=== PATIENT | female | born 1995 | race African-American/Black ===

== ENCOUNTER 2016-10-31 08:47 | Emergency (ER) | payer SELFPAY ==
[~2016-10-31] VITALS: Ht 157.5 cm; Wt 65.0 kg
[~2016-10-31 08:47] MED LIST: MACR100C37 PO; Z.0.NO CURRENT MEDS
[2016-10-31 08:52] VITALS: BP 120/69; PULSE 101; RESP 18; TEMP 98.3; O2SAT 100
[2016-10-31] MEDS ORDERED: LIDOCAINE 1%/EPINEPHrine 1:100,000 SOLN 20 ML VIAL INFIL ONE (09:00)
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
[2016-10-31] MEDS ORDERED: TRAM50TA PO (10:18)
[2016-10-31] MEDS ORDERED: BACT800T5 PO (10:18)
[2016-10-31] MEDS ORDERED: IBUP-232 PO (10:18)
[2016-10-31] MEDS ORDERED: CEPH500C PO (10:18)
[2016-10-31] MEDS ORDERED: IBUPROFEN 800 MG TAB PO ONE (10:30)
== END 2016-10-31 11:19 | disposition home or self-care (01) ==
LOC: NEPK 08:47
DX: S81.012A Laceration without foreign body, left knee, initial encounter (principal); Z72.0 Tobacco use; X99.8XXA Assault by other sharp object, initial encounter; Y93.9 Activity, unspecified; Y92.9 Unspecified place or not applicable; Y99.8 Other external cause status
CPT/HCPCS: 12001; 73564

== ENCOUNTER 2016-11-02 16:08 | Emergency (ER) | payer SELFPAY ==
[~2016-11-02] VITALS: Ht 157.5 cm; Wt 72.0 kg
[~2016-11-02 16:08] MED LIST changes: +BACT800T5 PO; +CEPH500C PO; +IBUP-232 PO; -MACR100C37 PO; +TRAM50TA PO; -Z.0.NO CURRENT MEDS
[2016-11-02 16:09] VITALS: BP 124/68; PULSE 103; RESP 16; TEMP 98.5; O2SAT 98
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
== END 2016-11-02 16:44 | disposition home or self-care (01) ==
LOC: NEPD 16:08
DX: Z48.02 Encounter for removal of sutures (principal); Z79.899 Other long term (current) drug therapy
CPT/HCPCS: 99281

== ENCOUNTER 2016-11-09 16:09 | Emergency (ER) | payer SELFPAY ==
[~2016-11-09] VITALS: Ht 157.5 cm; Wt 70.0 kg
[2016-11-09 16:11] VITALS: BP 124/69; PULSE 95; RESP 16; TEMP 98.8; O2SAT 98
--- NOTE | 2016-11-09 16:31 | PD ---
HPI Chief Complaint: Wound/Suture/Staple Re-Check Time Seen by Provider: 16:29 Travel History International Travel<30 days: No Contact w/Intl Traveler<30days: No Traveled to known affect area: No History of Present Illness HPI 21-year-old female presents to emergency department requesting suture removal to laceration just above her left knee that has been there since October 31. She denies fever, vomiting. Denies drainage, redness, swelling to the wound site. Has no other medical complaints. No known allergies. No modifying factors or associated signs and symptoms. PFSH Past Medical History Autoimmune Disease: No Cardiovascular Problems: No Diminished Hearing: No Genitourinary: Yes (STD) Musculoskeletal: No Neurologic: No Psychiatric: No Respiratory: No Immunizations Current: Yes Sickle Cell Disease: No : 0 Past Surgical History Oral Surgery: Yes Social History Alcohol Use: No Tobacco Use: Yes Substance Use: Yes Allergies-Medications (Allergen,Severity, Reaction): Coded Allergies: No Known Allergies (Verified , 10/31/16) Reported Meds & Prescriptions Reported Meds & Active Scripts Active Tramadol (Tramadol HCl) 50 Mg Tab 50 Mg PO Q6H PRN Ibuprofen 600 Mg Tab 600 Mg PO Q6H PRN Cephalexin 500 Mg Cap 500 Mg PO Q8H Bactrim DS (Sulfamethoxazole-Trimethoprim) 800-160 Mg Tab 1 Tab PO BID Review of Systems Except as stated in HPI: all other systems reviewed are Neg Physical Exam Narrative GENERAL: Well-nourished, well-developed female patient, in no acute distress SKIN: Warm and dry. Laceration just above the left knee that is well approximated with sutures intact; without erythema, edema, drainage. No signs of infection. HEAD: Atraumatic. Normocephalic. EYES: Pupils equal and round. No scleral icterus. No injection or drainage. ENT: Mucosa pink and moist. Airway patent. NECK: Trachea midline. CARDIOVASCULAR: Regular rate. RESPIRATORY: No accessory muscle use. GASTROINTESTINAL: Round. MUSCULOSKELETAL: No obvious deformities. No clubbing. No cyanosis. No edema. NEUROLOGICAL: Awake and alert. Oriented 3. No obvious cranial nerve deficits. Motor grossly within normal limits. Normal speech. PSYCHIATRIC: Appropriate mood and affect; insight and judgment normal. Data Data Last Documented VS Vital Signs Date Time Temp Pulse Resp B/P Pulse Ox O2 Delivery O2 Flow Rate FiO2 11/09/16 16:11 98.8 95 16 124/69 98 Room Air MDM Medical Decision Making Medical Screen Exam Complete: Yes Emergency Medical Condition: Yes Medical Record Reviewed: Yes Differential Diagnosis Suture removal, staple removal, wound recheck Narrative Course 21-year-old female requesting sutures to be removed from laceration just above her left knee. There are no signs of infection. Wound is well approximated and sutures are intact. Sutures were placed on October 31. Sutures removed. Patient tolerated well. Instructed patient to follow up with primary care provider. Patient verbalizes understanding and agreement with treatment plan. Patient is medically cleared and stable for discharge. Discussed reasons to return to the emergency department. Patient agrees with treatment plan. The patients vital signs are stable and the patient is stable for outpatient follow- up and treatment. Patient discharged home, stable and in no acute distress. Diagnosis Primary Impression: Encounter for removal of sutures Referrals: Primary Care Physician Patient Instructions: General Instructions, Stitches Removal (ED) Additional Instructions: Follow-up with primary care provider Med/Other Pt SpecificInfo: No Change to Meds, No Meds Exist/No RX given Disposition: 01 DISCHARGE HOME Condition: Stable Zeny Gregory Nov 09, 2016 16:30
== END 2016-11-09 16:57 | disposition home or self-care (01) ==
LOC: NEPK 16:09
DX: S71.112D Laceration without foreign body, left thigh, subsequent encounter (principal); X58.XXXD Exposure to other specified factors, subsequent encounter; Z48.02 Encounter for removal of sutures
CPT/HCPCS: 99281

== ENCOUNTER 2016-11-14 23:56 | Emergency (ER) | payer SELFPAY ==
[~2016-11-14] VITALS: Ht 160 cm; Wt 70.0 kg
[2016-11-15 00:24] VITALS: BP 121/62; PULSE 88; RESP 16; TEMP 100.8; O2SAT 98
[2016-11-15 02:01] VITALS: BP 110/67; PULSE 92; RESP 20; TEMP 100.2; O2SAT 99
--- NOTE | 2016-11-15 02:05 | PD ---
HPI Chief Complaint: Cold / Flu Symptoms Time Seen by Provider: 01:56 Travel History International Travel<30 days: No Contact w/Intl Traveler<30days: No Traveled to known affect area: No History of Present Illness HPI C/O N/V/D/ CRAMPY ABD PAIN ONSET YESTERDAY, NOT IMPROVING, PAIN IN ABD IS CRAMPY AND ONLY WITH BM, NONRAD PAIN, 5/10 ALTHOUGH CURRENTLY IS PAIN FREE IN ABD BUT FEELS BODY ACHES... PFSH Past Medical History Autoimmune Disease: No Cardiovascular Problems: No Diminished Hearing: No Gastrointestinal Disorders: No Genitourinary: Yes (STD) Musculoskeletal: No Neurologic: No Psychiatric: No Respiratory: No Immunizations Current: Yes Sickle Cell Disease: No : 0 Past Surgical History Oral Surgery: Yes Other Surgery: No Social History Alcohol Use: No Tobacco Use: Yes Substance Use: No Allergies-Medications (Allergen,Severity, Reaction): Coded Allergies: No Known Allergies (Verified , 10/31/16) Reported Meds & Prescriptions Reported Meds & Active Scripts Active Tramadol (Tramadol HCl) 50 Mg Tab 50 Mg PO Q6H PRN Ibuprofen 600 Mg Tab 600 Mg PO Q6H PRN Cephalexin 500 Mg Cap 500 Mg PO Q8H Bactrim DS (Sulfamethoxazole-Trimethoprim) 800-160 Mg Tab 1 Tab PO BID Review of Systems Except as stated in HPI: all other systems reviewed are Neg General / Constitutional: Positive: Fever, Chills Respiratory: Positive: Cough Gastrointestinal: Positive: Nausea, Vomiting, Diarrhea Physical Exam Narrative GENERAL: SKIN: Warm and dry. HEAD: Atraumatic. Normocephalic. EYES: Pupils equal and round. No scleral icterus. No injection or drainage. ENT: No nasal bleeding or discharge. Mucous membranes pink and moist. NECK: Trachea midline. No JVD. CARDIOVASCULAR: Regular rate and rhythm. RESPIRATORY: No accessory muscle use. Clear to auscultation. Breath sounds equal bilaterally. GASTROINTESTINAL: Abdomen soft, non-tender, nondistended. HYPERACTIVE BS MUSCULOSKELETAL: Extremities without clubbing, cyanosis, or edema. No obvious deformities. NEUROLOGICAL: Awake and alert. No obvious cranial nerve deficits. Motor grossly within normal limits. Five out of 5 muscle strength in the arms and legs. Normal speech. PSYCHIATRIC: Appropriate mood and affect; insight and judgment normal. Data Data Last Documented VS Vital Signs Date Time Temp Pulse Resp B/P Pulse Ox O2 Delivery O2 Flow Rate FiO2 11/15/16 02:01 100.2 92 20 110/67 99 Room Air Orders Complete Blood Count With Diff (11/15/16 02:05) Comprehensive Metabolic Panel (11/15/16 02:05) Lipase (11/15/16 02:05) Urinalysis - C+S If Indicated (11/15/16 02:05) Ed Urine Pregnancytest Poc (11/15/16 02:05) Ondansetron Inj (Zofran Inj) (11/15/16 02:15) Ketorolac Inj (Toradol Inj) (11/15/16 02:15) Sodium Chlor 0.9% 1000 Ml Inj (Ns 1000 M (11/15/16 02:15) Labs Laboratory Tests Test 11/15/16 02:10 White Blood Count 5.1 TH/MM3 Red Blood Count 3.83 MIL/MM3 Hemoglobin 9.7 GM/DL Hematocrit 30.2 % Mean Corpuscular Volume 78.9 FL Mean Corpuscular Hemoglobin 25.4 PG Mean Corpuscular Hemoglobin 32.2 % Concent Red Cell Distribution Width 22.6 % Platelet Count 392 TH/MM3 Mean Platelet Volume 6.8 FL Neutrophils (%) (Auto) 74.5 % Lymphocytes (%) (Auto) 10.7 % Monocytes (%) (Auto) 14.0 % Eosinophils (%) (Auto) 0.1 % Basophils (%) (Auto) 0.7 % Neutrophils # (Auto) 3.8 TH/MM3 Lymphocytes # (Auto) 0.5 TH/MM3 Monocytes # (Auto) 0.7 TH/MM3 Eosinophils # (Auto) 0.0 TH/MM3 Basophils # (Auto) 0.0 TH/MM3 CBC Comment DIFF FINAL Differential Comment Urine Color YELLOW Urine Turbidity CLOUDY Urine pH 5.5 Urine Specific Junction 1.020 Urine Protein TRACE mg/dL Urine Glucose (UA) NEG mg/dL Urine Ketones NEG mg/dL Urine Occult Blood NEG Urine Nitrite NEG Urine Bilirubin NEG Urine Urobilinogen LESS THAN 2.0 MG/DL Urine Leukocyte Esterase MOD Urine RBC 2 /hpf Urine WBC 7 /hpf Urine Squamous Epithelial 36 /hpf Cells Urine Bacteria RARE /hpf Urine Mucus MANY /lpf Microscopic Urinalysis Comment CULT NOT INDICATED Sodium Level 136 MEQ/L Potassium Level 3.4 MEQ/L Chloride Level 103 MEQ/L Carbon Dioxide Level 22.7 MEQ/L Anion Gap 10 MEQ/L Blood Urea Nitrogen 4 MG/DL Creatinine 0.68 MG/DL Estimat Glomerular Filtration 132 ML/MIN Rate Random Glucose 88 MG/DL Calcium Level 8.4 MG/DL Total Bilirubin LESS THAN 0.1 MG/DL Aspartate Amino Transf 21 U/L (AST/SGOT) Alanine Aminotransferase 19 U/L (ALT/SGPT) Alkaline Phosphatase 57 U/L Total Protein 7.5 GM/DL Albumin 3.4 GM/DL Lipase 120 U/L [facility] Medical Decision Making Medical Screen Exam Complete: Yes Emergency Medical Condition: Yes Medical Record Reviewed: Yes Differential Diagnosis UTI V VIRAL ENTERITIS V FLU V BACTERIAL ENTERITIS V ELECTROLYTE ABNL V RELATED ILLNESS Narrative Course PATIENT WAS FOUND TO BE POSITIVE URINARY Diagnosis Primary Impression: VIRAL GASTROENTERITIS Additional Impression: NEWLY DIAGNOSED Patient Instructions: General Instructions, (ED), Viral Syndrome (ED) Scripts Metoclopramide (Reglan)10 Mg Tab10 Mg PO QID #20 TAB Ref 0 Prov:Jaguar Benson MD 11/15/16 Disposition: 01 DISCHARGE HOME Condition: Stable Jaguar Benson MD Nov 15, 2016 02:05
[2016-11-15] MEDS ORDERED: SODIUM CHLOR 0.9% 1000 ML INJ 1,000 ML IV ONE (02:15)
[2016-11-15] MEDS ORDERED: ONDANSETRON HCL 4 MG/2 ML VIAL IV PUSH ONE (02:15)
[2016-11-15] MEDS ORDERED: KETOROLAC TROMETHAMINE 30 MG/ML (IVP) VIAL IV PUSH ONE (02:15)
[2016-11-15 02:31] LABS: AUTOMATED NEUTROPHIL # 3.8 TH/MM3 (1.8-7.7); BASOPHIL % 0.7 % (0.0-2.0); EOSINOPHIL % 0.1 % (0.0-4.0); HEMATOCRIT 30.2 % (35.0-46.0); HEMO FLAGS DIFF FINAL; LYMPH % 10.7 % (9.0-44.0); LYMPHOCYTE # 0.5 TH/MM3 (1.0-4.8); MEAN CELL VOLUME 78.9 FL (80.0-100.0); MEAN CORPUSCULAR HEMOGLOBIN 25.4 PG (27.0-34.0); MEAN CORPUSCULAR HGB CONC 32.2 % (32.0-36.0); NEUT % 74.5 % (16.0-70.0); PLATELET COUNT 392 TH/MM3 (150-450); RED BLOOD COUNT 3.83 MIL/MM3 (4.00-5.30); RED CELL DISTRIBUTION WIDTH 22.6 % (11.6-17.2); WHITE BLOOD COUNT 5.1 TH/MM3 (4.0-11.0)
[2016-11-15 02:40] LABS: BACTERIA, URINE RARE /hpf; BLOOD, URINE NEG (NEG); COMMENT (UR) CULT NOT INDICATED; CULTURE IF INDICATED CULT NOT INDICATED; GLUCOSE,URINE NEG (NEG); KETONE, URINE NEG (NEG); MUCUS URINE MANY /lpf (OCC); NITRITE,URINE NEG (NEG); PH, URINE 5.5 (5.0-8.5); SQUAMOUS EPITHELIAL CELL URINE 36 /hpf (0-5); URINE COLOR YELLOW (YELLW/STRAW)
[2016-11-15 02:53] LABS: ALKALINE PHOSPHATASE 57 U/L (45-117); TOTAL BILIRUBIN ADULT LESS THAN 0.1 MG/DL (0.2-1.0)
[2016-11-15 03:03] LABS: ALT (GPT) 19 U/L (10-53); ANION GAP 10 MEQ/L (5-15); AST (GOT) 21 U/L (15-37); BICARBONATE 22.7 MEQ/L (21.0-32.0); BLOOD UREA NITROGEN 4 MG/DL (7-18); CHLORIDE 103 MEQ/L (98-107); GLOMERULAR FILTRATION RATE 132 ML/MIN (>89); POTASSIUM 3.4 MEQ/L (3.5-5.1); SODIUM (NA) 136 MEQ/L (136-145)
[2016-11-15] MEDS ORDERED: REGL10TA5 PO (03:23)
[2016-11-15 04:29] VITALS: BP 126/78
== END 2016-11-15 05:06 | disposition home or self-care (01) ==
LOC: NEPC 23:56
DX: A08.4 Viral intestinal infection, unspecified (principal); Z72.0 Tobacco use
CPT/HCPCS: 80053; 81001; 83690; 84703; 85025; 96374; 96375; 99284; J1885; J2405; J7030

== ENCOUNTER 2017-04-25 12:25 | Emergency (ER) | payer MEDICAID ==
[~2017-04-25 12:25] MED LIST changes: +REGL10TA5 PO
[2017-04-25 12:27] VITALS: BP 126/70; PULSE 92; RESP 14; TEMP 98.2; O2SAT 97
--- NOTE | 2017-04-25 13:24 | PD ---
HPI Chief Complaint: Medical Clearance Time Seen by Provider: 13:13 Travel History International Travel<30 days: No Contact w/Intl Traveler<30days: No Traveled to known affect area: No History of Present Illness HPI 22-year-old female presents to the emergency Department with complaint of abdominal cramping every 2-3 minutes and the feeling like she has to "booboo. " . Last menstrual period beginning of August,. Denies vaginal bleeding or leakage. Reports white vaginal discharge times one week. Says she was seen here in November and had a positive urine test. Does not have an established laundry aide. Says her Medicaid was not approved fast enough and when she called for appointments she was told she was too far along. Reports vomiting one time yesterday. Denies recent illness, including fevers. Denies dysuria or change in stool. Denies chest pain or shortness of breath. No known allergies. Has not taken any medications or tried any treatments to alleviate her symptoms. Does not have an established primary care provider. Has no other medical complaints. No other modifying factors or associated signs and symptoms. PFSH Past Medical History Autoimmune Disease: No Cardiovascular Problems: No Diminished Hearing: No Gastrointestinal Disorders: No Genitourinary: Yes (STD) Musculoskeletal: No Neurologic: No Psychiatric: No Respiratory: No Immunizations Current: Yes Sickle Cell Disease: No ?: : 0 Past Surgical History Oral Surgery: Yes Other Surgery: No Social History Alcohol Use: No Tobacco Use: Yes (05/15 PPD) Substance Use: No Allergies-Medications (Allergen,Severity, Reaction): Coded Allergies: No Known Allergies (Verified , 10/31/16) Reported Meds & Prescriptions Reported Meds & Active Scripts Active Reglan (Metoclopramide HCl) 10 Mg Tab 10 Mg PO QID Tramadol (Tramadol HCl) 50 Mg Tab 50 Mg PO Q6H PRN Ibuprofen 600 Mg Tab 600 Mg PO Q6H PRN Cephalexin 500 Mg Cap 500 Mg PO Q8H Bactrim DS (Sulfamethoxazole-Trimethoprim) 800-160 Mg Tab 1 Tab PO BID Review of Systems Except as stated in HPI: all other systems reviewed are Neg Physical Exam Narrative GENERAL: Well-nourished, well-developed black female patient, in no acute distress SKIN: Warm and dry. HEAD: Atraumatic. Normocephalic. EYES: Pupils equal and round. No scleral icterus. No injection or drainage. ENT: Mucosa pink and moist. Airway patent. NECK: Trachea midline. CARDIOVASCULAR: Regular rate and rhythm. No murmur appreciated. RESPIRATORY: No accessory muscle use. Breath sounds clear and equal bilaterally. No retractions or tachypnea. GASTROINTESTINAL: . Abdomen soft, non-tender. Bowel sounds 4 quadrants. MUSCULOSKELETAL: No obvious deformities. No clubbing. No cyanosis. No edema. NEUROLOGICAL: Awake and alert. Oriented 3. No obvious cranial nerve deficits. Motor grossly within normal limits. Normal speech. PSYCHIATRIC: Appropriate mood and affect; insight and judgment normal. Data Data Last Documented VS Vital Signs Date Time Temp Pulse Resp B/P (MAP) Pulse Ox O2 Delivery O2 Flow Rate FiO2 04/25/17 12:27 98.2 92 14 126/70 (88) 97 MDM Medical Decision Making Medical Screen Exam Complete: Yes Emergency Medical Condition: Yes Medical Record Reviewed: Yes Differential Diagnosis Labor, , medical clearance Narrative Course 22-year-old female with a positive UPT. Last menstrual period beginning of August. heart tones 140s. Patient reports having abdominal cramping every 2-3 minutes. 1318: Patient will be taken to the OB ED for further treatment and evaluation. Diagnosis Primary Impression: Qualified Codes: Z34.90 - Encounter for supervision of normal , unspecified, unspecified trimester Additional Impression: Abdominal cramping Referrals: Disability Liaison Officer Additional Instructions: Go to the [facility] immediately Med/Other Pt SpecificInfo: No Change to Meds, No Meds Exist/No RX given Disposition: 01 DISCHARGE HOME Condition: Stable Zeny Gregory Apr 25, 2017 13:24
--- NOTE | 2017-04-25 14:28 | PD ---
HPI Chief Complaint contraction pain Date Seen: Apr 25, 2017 Time Seen: 13:45 Travel History International Travel<30 Days: No Contact w/Intl Traveler<30Days: No Known Affected Area: No History of Present Illness HPI Ms Hobson is a 22YO at 35 weeks by LMP in early August with no PNC who presents to the OB ED with contractile abdominal pain, low back pain and pain behind her bilateral lower legs/knees. Pt has had some mucousy discharge, but no vaginal bleeding. Pt also has a JIMENEZ and emesis x3 today but no visual disturbances or dizziness. She feels like the contractions are coming every 3 minutes. Pt denies allergies and medications. Denies CP, SOB, diarrhea. Weeks Gestation: 35 Para: 0 : 1 Miscarriage: 0 : 0 History Past Medical History Medical History: Denies Significant Hx Past Surgical History Surgical History: No Previous Surgery Family History Narrative Family History Mother and Father ; mother of CHF and father from cancer Social History Alcohol Use: No Tobacco Use: Yes (smokes when in pain or angry--less than 1 cigarette per day) Substance Abuse: No (denies; however, on previous hospital encounter was UDS positive cannabinoids) Allergies-Medications (Allergen,Severity, Reaction): Coded Allergies: No Known Allergies (Verified , 10/31/16) Home Meds Active Scripts Metoclopramide (Reglan) 10 Mg Tab, 10 MG PO QID, #20 TAB 0 Refills Prov:Jaguar Benson MD 11/15/16 Tramadol (Tramadol) 50 Mg Tab, 50 MG PO Q6H Y for PAIN, #20 TAB Prov:Anam Vila MD 10/31/16 Ibuprofen (Ibuprofen) 600 Mg Tab, 600 MG PO Q6H Y for Pain/Inflammation, #40 TAB Prov:Anam Vila MD 10/31/16 Cephalexin (Cephalexin) 500 Mg Cap, 500 MG PO Q8H for Infection, #21 CAP Prov:Anam Vila MD 10/31/16 Sulfamethoxazole-Trimethoprim (Bactrim DS) 800-160 Mg Tab, 1 TAB PO BID for Infection, #14 TAB Prov:Anam Vila MD 10/31/16 Narrative Medication Denies taking medications Review of Systems General / Constitutional: No: Fever, Chills Eyes: No: Blurred Vision, Visual changes HENT: Headaches Cardiovascular: No: Chest Pain or Discomfort, Palpitations Respiratory: No: Short of Breath Gastrointestinal: Nausea, Vomiting, Abdominal Pain, No: Diarrhea Genitourinary: Discharge, No: Dysuria, Vaginal Bleeding Skin: No Rash Neurologic: No: Dizziness, Headache Physical Exam Vital Signs Date Time Temp Pulse Resp B/P (MAP) Pulse Ox O2 Delivery O2 Flow Rate FiO2 04/25/17 12:27 98.2 92 14 126/70 (88) 97 Narrative GENERAL: Well-nourished, well-developed patient in mild discomfort lying in bed. SKIN: Warm and dry. No rash or lesions. HEAD: Normocephalic and atraumatic. EYES: No scleral icterus. No injection or drainage. EOMI. ENT: No nasal drainage noted. Mucous membranes pink. Airway patent. NECK: Supple, trachea midline. No lymphadenopathy. CARDIOVASCULAR: Regular rate and rhythm without murmur, gallop, or rub. RESPIRATORY: Breath sounds equal bilaterally. No accessory muscle use. ABDOMEN/GI: Abdomen soft, non-tender, bowel sounds present, no rebound, no guarding Gravid to 35 weeks size GENITOURINARY: Cervix: closed Dilatation: - Effacement: - Station: - Presentation: - Membranes: intact Uterine Contractions: none FHT's: Category: 1 Baseline: 140 Reactive: yes Variability: moderate Decels: none EXTREMITIES: No cyanosis or edema. BACK: Nontender without obvious deformity. No CVA tenderness. NEUROLOGICAL: Awake and alert. Motor and sensory grossly within normal limits. Five out of 5 muscle strength in all muscle groups. Normal speech. Data Data Orders Orders Ed Discharge Order (04/25/17 13:25) Vital Signs (Adult) .ON ADMISSION (04/25/17 14:00) ^ Labor Status (04/25/17 14:00) Heart (04/25/17 14:00) Urinalysis - C+S If Indicated (04/25/17 14:00) ^ Non Stress Test (04/25/17 14:00) ^ Hydration (04/25/17 14:00) Comprehensive Metabolic Panel (04/25/17 14:00) Type And Screen (04/25/17 14:00) Gc And Chlamydia Pcr (04/25/17 14:00) Ob/Psych Drug Screen, Urine (04/25/17 14:00) Rubella Immune Status (04/25/17 14:00) Hepatitis Profile (04/25/17 14:00) Rapid Plasma Regin (Rpr) W Ttr (04/25/17 14:00) Complete Blood Count With Diff (04/25/17 14:00) Hiv Antibody Screen (04/25/17 14:00) Us Ob Pelvis >14 Wks Fetus (04/25/17 ) MDM Narrative Course / MDM 22YO at 35 weeks per LMP early August 2016 with no care presents to the ED with contractile pain, back pain, upper portion of LE pain. Monitor shows no contractions, Cat 1 tracing, BL 140, reactive, moderate and no decels. PLAN: - monitoring showing Cat 1 tracing as above - labs pending -OB US indicating amniotic fluid index of 24.9, 35/6 weeks gestational age, wt 2919g (60% for gest age), BPP 8/8 -UA with large leuko esterase, trace lysed blood -Start Macrobid 100mg BID x5 days -Rubella immune -CMP wnl, CBC w/ H/H 9.2/28.1 -Cervical exam with closed cervix Discharge home. Seen and discussed with Teresa Curiel and Taya Diagnosis Diagnosis: Primary Impression: UTI (urinary tract infection) in in third trimester Additional Impressions: Polyhydramnios affecting in third trimester Bacterial vaginosis No care in current 35 weeks gestation of Disposition: 01 DISCHARGE HOME Condition: Stable Patient Instructions: General Instructions Additional Instructions: Go to the [facility] immediately Departure Forms: Tests/Procedures Jonathan Grimm MD R1 Apr 25, 2017 14:28
[2017-04-25 15:22] LABS: AUTOMATED NEUTROPHIL # 5.1 TH/MM3 (1.8-7.7); BASOPHIL # 0.1 TH/MM3 (0-0.2); BASOPHIL % 0.7 % (0.0-2.0); EOSINOPHIL # 0.1 TH/MM3 (0-0.4); EOSINOPHIL % 0.8 % (0.0-4.0); HEMATOCRIT 28.1 % (35.0-46.0); HEMOGLOBIN 9.2 GM/DL (11.6-15.3); LYMPH % 22.9 % (9.0-44.0); LYMPHOCYTE # 1.7 TH/MM3 (1.0-4.8); MEAN CORPUSCULAR HEMOGLOBIN 25.8 PG (27.0-34.0); MEAN CORPUSCULAR HGB CONC 32.7 % (32.0-36.0); MONO % 7.2 % (0.0-8.0); MONOCYTE # 0.5 TH/MM3 (0-0.9); NEUT % 68.4 % (16.0-70.0); PLATELET COUNT 307 TH/MM3 (150-450); RED BLOOD COUNT 3.56 MIL/MM3 (4.00-5.30); RED CELL DISTRIBUTION WIDTH 20.1 % (11.6-17.2); WHITE BLOOD COUNT 7.5 TH/MM3 (4.0-11.0)
[2017-04-25 15:36] LABS: ALBUMIN 2.7 GM/DL (3.4-5.0); ALT (GPT) 24 U/L (10-53); AST (GOT) 23 U/L (15-37); BICARBONATE 24.2 MEQ/L (21.0-32.0); BLOOD UREA NITROGEN 7 MG/DL (7-18); CALCIUM 8.7 MG/DL (8.5-10.1); CHLORIDE 106 MEQ/L (98-107); CREATININE 0.45 MG/DL (0.50-1.00); GLOMERULAR FILTRATION RATE 211 ML/MIN (>89); GLUCOSE,RANDOM 77 MG/DL (74-106); SODIUM (NA) 139 MEQ/L (136-145)
[2017-04-25 15:39] LABS: ALKALINE PHOSPHATASE 161 U/L (45-117); TOTAL BILIRUBIN ADULT 0.2 MG/DL (0.2-1.0); TOTAL PROTEIN 6.4 GM/DL (6.4-8.2)
[2017-04-25 16:40] LABS: BACTERIA, URINE MANY /hpf; BILIRUBIN, URINE NEG (NEG); BLOOD, URINE NEG (NEG); GLUCOSE,URINE NEG (NEG); KETONE, URINE NEG (NEG); MUCUS URINE FEW /lpf (OCC); NITRITE,URINE NEG (NEG); PH, URINE 6.5 (5.0-8.5); SQUAMOUS EPITHELIAL CELL URINE 27 /hpf (0-5); URINE COLOR YELLOW (YELLW/STRAW); URINE LEUKOCYTE ESTERASE LARGE (NEG)
[2017-04-25] MEDS ORDERED: MACR100C2 PO (16:45)
--- NOTE | 2017-04-25 16:47 | HHI.DCPOC ---
Discharge Care Plan Report Symptoms to Your Doctor -Temperature above 100.5 degrees -Redness, of incision or excessive or foul smelling drainage -Unusual pain or calf pain -Increased vaginal bleeding -Painful or difficulty urinating -Feelings of extreme sadness or anxiety after 2 weeks Goals to Promote Your Health * To prevent worsening of your condition and complications, please take your medication as prescribed. * To maintain your health at the optimal level, please follow up with your doctor in 1 week. Directions to Meet Your Goals Take your medications as prescribed Follow your dietary instruction Follow activity as directed Ensure plenty of rest for recovery Drink fluids for hydration Keep your appointments as scheduled Take your immunizations and boosters as scheduled If your symptoms worsen call your PCP, if no PCP go to Urgent Care Center or Emergency Room Smoking is Dangerous to Your Health. Avoid second hand smoke Call the 24-hour crisis hotline for domestic abuse at Jonathan Grimm MD R1 Apr 25, 2017 16:47
[2017-04-25] MEDS ORDERED: METR-1 PO (17:00)
[2017-04-28 12:28] LABS: HEPATITIS A AB IGM NEGATIVE (NEGATIVE); HEPATITIS B CORE AB IGM NEGATIVE (NEGATIVE); HEPATITIS B SURFACE ANTIGEN NEGATIVE (NEGATIVE); HEPATITIS C AB IgG NEGATIVE (NEGATIVE)
== END 2017-04-25 17:08 | disposition home or self-care (01) ==
LOC: HOBED 12:25
DX: O23.43 Unspecified infection of urinary tract in pregnancy, third trimester (principal); O40.3XX0 Polyhydramnios, third trimester, not applicable or unspecified; O23.593 Infection of other part of genital tract in pregnancy, third trimester; N76.0 Acute vaginitis; B96.89 Other specified bacterial agents as the cause of diseases classified elsewhere; O99.333 Smoking (tobacco) complicating pregnancy, third trimester; Z79.899 Other long term (current) drug therapy; Z3A.35 35 weeks gestation of pregnancy
CPT/HCPCS: 36415; 76805; 80053; 80074; 80307; 81001; 85025; 86403; 86592; 86703; 86762; 86850; 86900; 86901; 87081; 87086; 87491; 87591; 99284; G0481; 87150

== ENCOUNTER 2017-04-28 08:56 | Emergency (ER) | payer MEDICAID ==
[~2017-04-28 08:56] MED LIST changes: +MACR100C2 PO; +METR-1 PO
[2017-04-28 09:12] VITALS: BP 125/82; PULSE 101
--- NOTE | 2017-04-28 09:44 | PD ---
HPI Chief Complaint body aches Date Seen: Apr 28, 2017 Time Seen: 09:44 Travel History International Travel<30 Days: No Contact w/Intl Traveler<30Days: No History of Present Illness HPI Patient is a homeless 22-year-old at 36 weeks who presents with body aches. Patient presented to the ED on 04/25 for abdominal pain and pain in her lower legs. Was noticing mucousy discharge. Was found to be positive for Trichomonas and bacterial vaginosis. Diagnosed with UTI and started on Macrobid 100 mg twice a day and Flagyl 500 mg daily. Patient presents today with complaints of body aches and a sore throat that started after her last visit to the ED. She endorses sore throat. Denies fever, nausea/vomiting, diarrhea, dysuria, or discharge. Does not have a primary care provider/SWITCH REPAIRER. He states that she first found out that she was in December at [place] and had ultrasound ( was 11 weeks). Last ultrasound was done at 04/25 visit showing amniotic fluid index of 24.9, 35/6 weeks gestational age, and weight 19170 g. BPP was 8/ 8. Patient has had no other issues this . Has a history of IV drug use , but states that she has not been smoking or using any drugs since living with brother (has been one-week). Weeks Gestation: 36 Para: 0 : 1 History Past Medical History Medical History: Denies Significant Hx Past Surgical History Surgical History: No Previous Surgery Family History Family History: Negative Social History Alcohol Use: No Tobacco Use: No Substance Abuse: No Allergies-Medications (Allergen,Severity, Reaction): Coded Allergies: No Known Allergies (Verified Allergy, Unknown, 04/28/17) Home Meds Active Scripts Metronidazole (Flagyl) 500 Mg Tab, 500 MG PO BID for Infection, #14 TAB 0 Refills Prov:Beth Bain MD R2 04/25/17 Nitrofurantoin Monohydrate Macrocrystals (Macrobid) 100 Mg Cap, 100 MG PO BID for Infection for 5 Days, #10 CAP 0 Refills Prov:Jonathan Grimm MD R1 04/25/17 Metoclopramide (Reglan) 10 Mg Tab, 10 MG PO QID, #20 TAB 0 Refills Prov:Jaguar Benson MD 11/15/16 Tramadol (Tramadol) 50 Mg Tab, 50 MG PO Q6H Y for PAIN, #20 TAB Prov:Anam Vila MD 10/31/16 Ibuprofen (Ibuprofen) 600 Mg Tab, 600 MG PO Q6H Y for Pain/Inflammation, #40 TAB Prov:Anam Vila MD 10/31/16 Cephalexin (Cephalexin) 500 Mg Cap, 500 MG PO Q8H for Infection, #21 CAP Prov:Anam Vila MD 10/31/16 Sulfamethoxazole-Trimethoprim (Bactrim DS) 800-160 Mg Tab, 1 TAB PO BID for Infection, #14 TAB Prov:Anam Vila MD 10/31/16 Review of Systems Except as stated in HPI: all other systems reviewed are Neg Physical Exam Vital Signs Date Time Temp Pulse Resp B/P (MAP) Pulse Ox O2 Delivery O2 Flow Rate FiO2 04/28/17 09:12 101 125/82 (96) Narrative GENERAL: Well-nourished, well-developed patient. SKIN: Warm and dry. HEAD: Normocephalic and atraumatic. EYES: No scleral icterus. No injection or drainage. ENT: No nasal drainage noted. Mucous membranes pink. Airway patent. NECK: Supple, trachea midline. No JVD. CARDIOVASCULAR: Regular rate and rhythm without murmurs, gallops, or rubs. RESPIRATORY: Breath sounds equal bilaterally. No accessory muscle use. ABDOMEN/GI: Abdomen soft, non-tender, bowel sounds present, no rebound, no guarding GENITOURINARY: Cervix: Posterior Dilatation: 0 Effacement: Closed Station: [-] Presentation: [-] Membranes: [intact or ruptured] Uterine Contractions: [-] FHT's: Category: 1 Baseline: 150 Reactive: Yes Variability: Moderate Decels: No EXTREMITIES: No cyanosis or edema. BACK: Nontender without obvious deformity. No CVA tenderness. NEUROLOGICAL: Awake and alert. Motor and sensory grossly within normal limits. Five out of 5 muscle strength in all muscle groups. Normal speech. Data Data Vital Signs Reviewed: Yes Orders Orders Vital Signs (Adult) .ON ADMISSION (04/28/17 09:13) ^ Labor Status (04/28/17 09:13) ^ Non Stress Test (04/28/17 09:13) ^ Hydration (04/28/17 09:13) Urinalysis - C+S If Indicated (04/28/17 09:40) Comprehensive Metabolic Panel (04/28/17 09:40) Ob/Psych Drug Screen, Urine (04/28/17 09:40) Drug Screen, Random Urine (04/28/17 09:40) Complete Blood Count With Diff (04/28/17 09:40) Group B Strep: Positive MDM Medical Record Reviewed: Yes Interpretation(s) Patient is a 22-year-old female at 36 weeks presenting with body aches. History of homelessness and IV drug use. Symptoms likely secondary to viral illness versus antibiotic side effects versus dehydration. heart tones reassuring. Urine sample appears cloudy, however patient does not have any urinary symptoms. Plan to provide hydration. Will also order urinalysis, in order CBC, CMP, and urine drug screen. Provide Tylenol as needed. Plan Tylenol 650 mg PO given x1. 1L LR IV x1 given. F/u w/[facility]. Has appointment scheduled 05/06/17. Physician Communication Plan communicated with Dr. Gifford and Dr. Curiel. Diagnosis Diagnosis: Primary Impression: 36 weeks gestation of Disposition: DISCHARGE HOME Condition: Stable Annie Bro MD R1 Apr 28, 2017 09:44
[2017-04-28] MEDS ORDERED: SODIUM CHLOR 0.9% 1000 ML INJ 1,000 ML IV ONE (10:00)
[2017-04-28] MEDS ORDERED: ACETAMINOPHEN 325 MG TAB PO ONE (10:00)
[2017-04-28 10:09] LABS: BACTERIA, URINE MOD /hpf; BILIRUBIN, URINE NEG (NEG); BLOOD, URINE NEG (NEG); GLUCOSE,URINE NEG (NEG); HYALINE CAST, URINE 1 /lpf (RARE); KETONE, URINE NEG (NEG); MUCUS URINE FEW /lpf (OCC); NITRITE,URINE NEG (NEG); PH, URINE 6.5 (5.0-8.5); SQUAMOUS EPITHELIAL CELL URINE 39 /hpf (0-5); URINE COLOR YELLOW (YELLW/STRAW); URINE LEUKOCYTE ESTERASE LARGE (NEG)
[2017-04-28 10:09] LABS: AUTOMATED NEUTROPHIL # 12.2 TH/MM3 (1.8-7.7); BASOPHIL % 0.2 % (0.0-2.0); EOSINOPHIL # 0.1 TH/MM3 (0-0.4); EOSINOPHIL % 0.5 % (0.0-4.0); HEMATOCRIT 29.3 % (35.0-46.0); HEMOGLOBIN 9.3 GM/DL (11.6-15.3); LYMPH % 6.1 % (9.0-44.0); LYMPHOCYTE # 0.9 TH/MM3 (1.0-4.8); MEAN CELL VOLUME 79.5 FL (80.0-100.0); MEAN CORPUSCULAR HEMOGLOBIN 25.1 PG (27.0-34.0); MEAN CORPUSCULAR HGB CONC 31.6 % (32.0-36.0); MEAN PLATELET VOLUME 8.1 FL (7.0-11.0); MONO % 7.4 % (0.0-8.0); NEUT % 85.8 % (16.0-70.0); PLATELET COUNT 268 TH/MM3 (150-450); RED BLOOD COUNT 3.69 MIL/MM3 (4.00-5.30); RED CELL DISTRIBUTION WIDTH 19.3 % (11.6-17.2); WHITE BLOOD COUNT 14.2 TH/MM3 (4.0-11.0)
[2017-04-28 10:25] LABS: ALBUMIN 2.6 GM/DL (3.4-5.0); AST (GOT) 22 U/L (15-37); BLOOD UREA NITROGEN 3 MG/DL (7-18); CALCIUM 8.2 MG/DL (8.5-10.1); CHLORIDE 106 MEQ/L (98-107); GLOMERULAR FILTRATION RATE 187 ML/MIN (>89); GLUCOSE,RANDOM 76 MG/DL (74-106); SODIUM (NA) 137 MEQ/L (136-145)
[2017-04-28 10:28] LABS: ALKALINE PHOSPHATASE 157 U/L (45-117); ALT (GPT) 22 U/L (10-53); TOTAL BILIRUBIN ADULT 0.2 MG/DL (0.2-1.0); TOTAL PROTEIN 6.8 GM/DL (6.4-8.2)
[2017-04-28 10:42] LABS: CORRECTED NUCLEATED RBC 1 /100 WBC (0-0); LYMPHOCYTES 7 % (9-44); MONOCYTES 6 % (0-8); NEUTROPHIL # MANUAL DIFF 12.4 TH/MM3 (1.8-7.7); NUCLEATED RED BLOOD CELL 1 (0-0); POLYS (SEG NEUTROPHILS) 87 % (16-70)
[2017-04-28] MEDS ORDERED: LACTATED RINGER'S 1000 ML INJ 1,000 ML IV ONE (10:45)
== END 2017-04-28 12:02 | disposition home or self-care (01) ==
LOC: HOBED 08:56
DX: O99.513 Diseases of the respiratory system complicating pregnancy, third trimester (principal); J02.9 Acute pharyngitis, unspecified; O23.43 Unspecified infection of urinary tract in pregnancy, third trimester; B96.89 Other specified bacterial agents as the cause of diseases classified elsewhere; Z3A.36 36 weeks gestation of pregnancy
CPT/HCPCS: 59025; 80053; 80307; 81001; 85007; 85027; 87086; 99284; G0481; J7120

== ENCOUNTER 2017-05-19 12:06 | Emergency (ER) | payer MEDICAID ==
--- NOTE | 2017-05-19 13:22 | PD ---
HPI Chief Complaint pelvic pressure Date Seen: May 19, 2017 Travel History International Travel<30 Days: No Contact w/Intl Traveler<30Days: No Known Affected Area: No History of Present Illness HPI Ms. Hobson is a 22-year-old G1 at 39 2/7 weeks (per 04/25/2017 ultrasound) who presents with complaints of lower pelvic pressure and pain on her sides. Patient states that this pain has been present intermittently for the past several days; it occurs for approximate 5 minutes at a time before remitting. Patient states that pain was significant enough that it awoke her from sleep this morning. Patient does not report any associated pain with urination, fever , or back pain. Patient reports normal movement. Patient denies vaginal bleeding. Patient had some leakage of clear fluid which she is not sure whether it was urine. Patient also reports some whitish discharge but denies any vaginal pain , itching, or other vaginal symptoms. records reviewed: Patient obtained labs 04/25/2017. Labs are unremarkable with exception of mild anemia (Hgb ~9, and GBS positive status). Ultrasound 04/25 showed borderline high KAPIL (24.9). Patient recently treated for Trichomonas and bacterial vaginosis; she states she was compliant with this treatment Weeks Gestation: 39 Para: 0 : 1 History Past Medical History Medical History: Denies Significant Hx Obstetric History Obstetric History G1 Past Surgical History Surgical History: No Previous Surgery Family History Narrative Family History None reported Social History Alcohol Use: No Tobacco Use: Yes (unspecified quantity) Substance Abuse: No (none reported) Allergies-Medications (Allergen,Severity, Reaction): Coded Allergies: No Known Allergies (Verified Allergy, Unknown, 04/28/17) Home Meds Active Scripts Metronidazole (Flagyl) 500 Mg Tab, 500 MG PO BID for Infection, #14 TAB 0 Refills Prov:Beth Bain MD R2 04/25/17 Nitrofurantoin Monohydrate Macrocrystals (Macrobid) 100 Mg Cap, 100 MG PO BID for Infection for 5 Days, #10 CAP 0 Refills Prov:Jonathan Grimm MD R1 04/25/17 Metoclopramide (Reglan) 10 Mg Tab, 10 MG PO QID, #20 TAB 0 Refills Prov:Jaguar Benson MD 11/15/16 Tramadol (Tramadol) 50 Mg Tab, 50 MG PO Q6H Y for PAIN, #20 TAB Prov:Anam Vila MD 10/31/16 Ibuprofen (Ibuprofen) 600 Mg Tab, 600 MG PO Q6H Y for Pain/Inflammation, #40 TAB Prov:Anam Vila MD 10/31/16 Cephalexin (Cephalexin) 500 Mg Cap, 500 MG PO Q8H for Infection, #21 CAP Prov:Anam Vila MD 10/31/16 Sulfamethoxazole-Trimethoprim (Bactrim DS) 800-160 Mg Tab, 1 TAB PO BID for Infection, #14 TAB Prov:Anam Vila MD 10/31/16 Review of Systems General / Constitutional: No: Fever, Chills Eyes: No: Blurred Vision HENT: No: Headaches Cardiovascular: No: Chest Pain or Discomfort Respiratory: No: Short of Breath Gastrointestinal: Vomiting (x1 episode last night), Abdominal Pain (lower, pressure) Genitourinary: No: Urgency, Frequency Skin: No Rash, No Itching Physical Exam Narrative GENERAL: Well-nourished, well-developed patient. SKIN: Warm and dry. HEAD: Normocephalic and atraumatic. EYES: No scleral icterus. No injection or drainage. ENT: No nasal drainage noted. Mucous membranes pink. Airway patent. NECK: Supple, trachea midline. No JVD. CARDIOVASCULAR: Regular rate and rhythm without murmurs. RESPIRATORY: Breath sounds equal bilaterally. No accessory muscle use. EXTREMITIES: No cyanosis or edema. BACK: Nontender without obvious deformity. No CVA tenderness. NEUROLOGICAL: Awake and alert. Motor and sensory grossly within normal limits. Five out of 5 muscle strength in all muscle groups. Normal speech. ABDOMEN/GI: Abdomen soft, non-tender, bowel sounds present, no rebound, no guarding Gravid GENITOURINARY: External Genitalia: intact and normal in appearance Cervix: Dilatation: 0-1 Effacement: 0% Station: -3 Presentation: V Membranes: Intact Uterine Contractions: intermittent/occasional FHT's: Category: 1 Baseline: 135 Reactive: Y Variability: Mod Data Data Vital Signs Reviewed: Yes Group B Strep: Positive MDM Medical Record Reviewed: Yes Plan 22-year-old G1 at 39 2/7 weeks (per 04/25/2017 ultrasound) who presents with complaints of lower pelvic pressure and pain on her sides -Category 1 rhythm -Occasional contractions on CTG -Cervix 0-1/0%/-3 -PE benign Plan: -Monitor HR on EFM -Due to concern for possible are within, Amnisure obtained Interval: Amnisure negative Cat 1 rhythm persistent Occasional contractions on EFM; >10 min separation Updated plan -Patient reassured she is not in labor at this time; she was counseled to return to OB ED with increasing frequency of contractions or any other concerns Diagnosis Diagnosis: Primary Impression: Margaret Swartz contractions Disposition: 01 DISCHARGE HOME Condition: Stable Patient Instructions: Abdominal Pain in (ED), Movement (ED), General Instructions Ronak Otero MD, R3 May 19, 2017 13:22
== END 2017-05-19 14:23 | disposition home or self-care (01) ==
LOC: HOBED 12:06
DX: O47.1 False labor at or after 37 completed weeks of gestation (principal); O99.013 Anemia complicating pregnancy, third trimester; O21.9 Vomiting of pregnancy, unspecified; O99.333 Smoking (tobacco) complicating pregnancy, third trimester; Z3A.39 39 weeks gestation of pregnancy
CPT/HCPCS: 59025; 84112

== ENCOUNTER → 2017-05-23 | Emergency (ER) | payer MEDICAID ==
[~2017-05-23] MED LIST changes: +FERR325T20 PO; +IBUP1TAB7 PO; +OXYC1TAB63 PO; +PERI PO
--- NOTE | 2017-05-23 18:02 | PD ---
HPI Chief Complaint abdominal pain; contractions? Date Seen: May 23, 2017 Travel History International Travel<30 Days: No Contact w/Intl Traveler<30Days: No Known Affected Area: No History of Present Illness HPI Ms. Hobson is a 22-year-old G1 at 40 1/7 weeks (per 04/25/2017 ultrasound) who presents with complaints of R sided abdominal pain. Patient reports that she has been having intermittent abdominal pain every few minutes since this morning; patient states that it is predominantly right- sided. Patient reports some whitish vaginal discharge but denies any loss of fluid. No reported pain with urination. Patient has had chronic urinary frequency during . No fever or chills. Patient reports shortness of breath for the past several weeks; this has not recently changed and patient has had some periods without shortness of breath. No associated cough, chest pain, or leg swelling.No nausea or vomiting. Patient reports normal movement. Patient denies vaginal bleeding. Patient had some leakage of clear fluid which she is not sure whether it was urine. Patient also reports some whitish discharge but denies any vaginal pain , itching, or other vaginal symptoms. records reviewed: Patient obtained labs 04/25/2017. Labs are unremarkable with exception of mild anemia (Hgb ~9, and GBS positive status). Ultrasound 04/25 showed borderline high KAPIL (24.9). Patient recently treated for Trichomonas and bacterial vaginosis; she states she was compliant with this treatment History Past Medical History Medical History: Denies Significant Hx Obstetric History Obstetric History G1 Past Surgical History Surgical History: No Previous Surgery Family History Family History: Negative Allergies-Medications (Allergen,Severity, Reaction): Coded Allergies: No Known Allergies (Verified Allergy, Unknown, 04/28/17) Home Meds Active Scripts Metronidazole (Flagyl) 500 Mg Tab, 500 MG PO BID for Infection, #14 TAB 0 Refills Prov:Beth Bain MD R2 04/25/17 Nitrofurantoin Monohydrate Macrocrystals (Macrobid) 100 Mg Cap, 100 MG PO BID for Infection for 5 Days, #10 CAP 0 Refills Prov:Jonathan Grimm MD R1 04/25/17 Metoclopramide (Reglan) 10 Mg Tab, 10 MG PO QID, #20 TAB 0 Refills Prov:Jaguar Benson MD 11/15/16 Tramadol (Tramadol) 50 Mg Tab, 50 MG PO Q6H Y for PAIN, #20 TAB Prov:Anam Vila MD 10/31/16 Ibuprofen (Ibuprofen) 600 Mg Tab, 600 MG PO Q6H Y for Pain/Inflammation, #40 TAB Prov:Anam Vila MD 10/31/16 Cephalexin (Cephalexin) 500 Mg Cap, 500 MG PO Q8H for Infection, #21 CAP Prov:Anam Vila MD 10/31/16 Sulfamethoxazole-Trimethoprim (Bactrim DS) 800-160 Mg Tab, 1 TAB PO BID for Infection, #14 TAB Prov:Anam Vila MD 10/31/16 Review of Systems General / Constitutional: No: Fever Eyes: No: Blurred Vision HENT: No: Headaches Cardiovascular: No: Chest Pain or Discomfort Respiratory: Short of Breath (intermittent) Gastrointestinal: Abdominal Pain (right sided), No: Nausea, Vomiting Genitourinary: Other (some vaginal discharge, whitish), No: Urgency, Dysuria, Vaginal Bleeding Skin: No Rash Psychiatric: No: Anxiety, Depression Physical Exam BP 111/82 T98.2 HR 89 O2 sat 100% Narrative GENERAL: Well-nourished, well-developed patient. SKIN: Warm and dry. HEAD: Normocephalic and atraumatic. EYES: No scleral icterus. No injection or drainage. ENT: No nasal drainage noted. Mucous membranes pink. Airway patent. NECK: Supple, trachea midline. No JVD. CARDIOVASCULAR: Regular rate and rhythm without murmurs RESPIRATORY: CTAB; normal rate ABDOMEN/GI: Abdomen soft, non-tender, bowel sounds present, no rebound, no guarding Gravid EXTREMITIES: No cyanosis or edema. BACK: Nontender without obvious deformity. No CVA tenderness. NEUROLOGICAL: Awake and alert. Motor and sensory function grossly within normal limits. GENITOURINARY: External Genitalia: intact and normal in appearance Cervix: Dilatation: 1cm Effacement: 70% Station: -3 Presentation: V Membranes: Intact Uterine Contractions: q10min FHT's: Category: 1 Baseline: 120 Reactive: Y Variability: Mod Decels: None MDM Medical Record Reviewed: Yes Narrative Course / MDM Ms. Hobson is a 22-year-old G1 at 40 1/7 weeks (per 04/25/2017 ultrasound) who presents with complaints of right sided abdominal pain -Category 1 rhythm - contractions q10min on CTG -Cervix 1/70%/-3 -PE benign -Reported vaginal discharge in the history of Trichomonas (treated, no CHIDI) Plan: -Monitor HR on EFM -Will obtain wet prep Interval: - HR reactive, reassuring for duration of EFM (>20min) -Contractions remained q10min Updated Assessment/Plan: Impression: Suspect early labor -Will schedule patient for an induction of labor; patient scheduled for 05/26 at 6am -Patient agrees to return to OB ED with any concerns for movement, increasing frequency of contractions, or other concerns -Will follow-up wet prep and call patient after resulted Diagnosis Diagnosis: Primary Impression: 40 weeks gestation of Additional Impression: Uterine contractions during Disposition: 01 DISCHARGE HOME Condition: Stable Patient Instructions: General Instructions, Abdominal Pain in (ED), Movement (ED) Departure Forms: Tests/Procedures Ronak Otero MD, R3 May 23, 2017 18:02
== END | disposition home or self-care (01) ==
LOC: HOBED 16:35
DX: O47.1 False labor at or after 37 completed weeks of gestation (principal); O99.013 Anemia complicating pregnancy, third trimester; D64.9 Anemia, unspecified; Z3A.40 40 weeks gestation of pregnancy
CPT/HCPCS: 59025; 87210

== ENCOUNTER 2017-05-26 06:31 | Inpatient (IN) | payer MEDICAID ==
[~2017-05-26] VITALS: Ht 157.5 cm; Wt 82.0 kg
[2017-05-26] VITALS (34 sets, daily range): BP systolic 109–140; BP diastolic 55–98; PULSE 17–102; RESP 18; TEMP 98–98.2
[~2017-05-26 06:31] MED LIST changes: -FERR325T20 PO; -IBUP1TAB7 PO; -OXYC1TAB63 PO; -PERI PO
[2017-05-26] MEDS ORDERED: LACTATED RINGER'S 1000 ML INJ 1,000 ML IV PRN (06:52)
[2017-05-26] MEDS ORDERED: OXYTOCIN 30 UNITS-500ML PREMIX 500 ML IV ONE (07:00)
[2017-05-26] MEDS ORDERED: LIDOCAINE HCL 1% 50 ML VIAL I-DERMAL PRN (07:00)
[2017-05-26] MEDS ORDERED: SODIUM CHLORID 0.9% 500 ML INJ 500 ML IV PRN (07:00)
[2017-05-26] MEDS ORDERED: PENICILLIN G POTASSIUM INJ 5,000,000 UNITS in SODIUM CHLORIDE 0.9% INJ 100 ML IV ONE (07:00)
[2017-05-26] MEDS ORDERED: ONDANSETRON HCL 4 MG/2 ML VIAL IV PUSH PRN (07:00)
[2017-05-26] MEDS ORDERED: MINERAL OIL 10 ML VIAL TOPICAL PRN (07:00)
[2017-05-26] MEDS ORDERED: LIDOCAINE HCL 1% 50 ML VIAL INFIL PRN (07:00)
--- NOTE | 2017-05-26 07:00 | HHI.HP ---
HPI Chief Complaint Induction of labor Date Seen: May 26, 2017 Travel History International Travel<30 Days: No Contact w/Intl Traveler<30Days: No History of Present Illness HPI Patient is a 22 year old at 40-4/7 weeks gestation based on third trimester US who presents today for induction of labor. She denies any vaginal bleeding or discharge. No gush or leaking of fluid. Positive movement. Of note, she has had poor care. Her first ultrasound was performed on 04/25/17 which gave an KEYANA of 05/24/17. History Past Medical History Medical History: Denies Significant Hx Obstetric History Obstetric History Past Surgical History Surgical History: No Previous Surgery Family History Family History: Negative Social History Alcohol Use: No Tobacco Use: Yes (1 cigarette per day) Substance Abuse: Yes (marijuana use) Allergies-Medications (Allergen,Severity, Reaction): Coded Allergies: No Known Allergies (Verified Allergy, Unknown, 04/28/17) Home Meds Active Scripts Metronidazole (Flagyl) 500 Mg Tab, 500 MG PO BID for Infection, #14 TAB 0 Refills Prov:Beth Bain MD R2 04/25/17 Nitrofurantoin Monohydrate Macrocrystals (Macrobid) 100 Mg Cap, 100 MG PO BID for Infection for 5 Days, #10 CAP 0 Refills Prov:Jonathan Grimm MD R1 04/25/17 Metoclopramide (Reglan) 10 Mg Tab, 10 MG PO QID, #20 TAB 0 Refills Prov:Jaguar Benson MD 11/15/16 Tramadol (Tramadol) 50 Mg Tab, 50 MG PO Q6H Y for PAIN, #20 TAB Prov:Anam Vila MD 10/31/16 Ibuprofen (Ibuprofen) 600 Mg Tab, 600 MG PO Q6H Y for Pain/Inflammation, #40 TAB Prov:Anam Vila MD 10/31/16 Cephalexin (Cephalexin) 500 Mg Cap, 500 MG PO Q8H for Infection, #21 CAP Prov:Anam Vila MD 10/31/16 Sulfamethoxazole-Trimethoprim (Bactrim DS) 800-160 Mg Tab, 1 TAB PO BID for Infection, #14 TAB Prov:Anam Vila MD 10/31/16 Review of Systems Except as stated in HPI: all other systems reviewed are Neg General / Constitutional: No: Fever, Chills Eyes: No: Blurred Vision, Visual changes HENT: No: Headaches Cardiovascular: No: Chest Pain or Discomfort, Palpitations Respiratory: No: Cough, Short of Breath Gastrointestinal: No: Nausea, Vomiting Genitourinary: No: Dysuria, Hematuria, Pelvic Pain, Discharge, Vaginal Bleeding Musculoskeletal: No: Edema Neurologic: No: Headache Psychiatric: Substance Abuse Physical Exam Narrative GENERAL: Well-nourished, well-developed patient. SKIN: Warm and dry. HEAD: Normocephalic and atraumatic. EYES: No scleral icterus. No injection or drainage. ENT: No nasal drainage noted. Mucous membranes pink. Airway patent. NECK: Supple, trachea midline. No JVD. CARDIOVASCULAR: Regular rate and rhythm without murmurs, gallops, or rubs. RESPIRATORY: Breath sounds equal bilaterally. No accessory muscle use. ABDOMEN/GI: Abdomen soft, non-tender, bowel sounds present, no rebound, no guarding Gravid to 40 weeks size GENITOURINARY: External Genitalia: intact and normal in appearance BUS glands: normal Cervix: anterior Dilatation: 1 Effacement: 0 Station: -2 Presentation: vertex Membranes: intact Uterine Contractions: none FHT's: Category: I Baseline: 130 Reactive: + Variability: moderate Decels: none EXTREMITIES: No cyanosis or edema. BACK: Nontender without obvious deformity. NEUROLOGICAL: Awake and alert. Motor and sensory grossly within normal limits. Normal speech. Caprini VTE Risk Assessment Caprini VTE Risk Assessment: No/Low Risk (score <= 1) Caprini Risk Assessment Model Point Value = 1 Point Value = 2 Point Value = 3 Point Value = 5 Age 41-60 Minor surgery BMI > 25 kg/m2 Swollen legs Varicose veins or History of unexplained or recurrent spontaneous Oral contraceptives or hormone replacement Sepsis (< 1 month) Serious lung disease, including pneumonia (< 1 month) Abnormal pulmonary function Acute myocardial infarction Congestive heart failure (< 1 month) History of inflammatory bowel disease Medical patient at bed rest Age 61-74 Arthroscopic surgery Major open surgery (> 45 min) Laparoscopic surgery (> 45 min) Malignancy Confined to bed (> 72 hours) Immobilizing plaster cast Central venous access Age >= 75 History of VTE Family history of VTE Factor V Leiden Prothrombin [id number] Lupus anticoagulant Anticardiolipin antibodies Elevated serum homocysteine Heparin-induced thrombocytopenia Other congenital or acquired thrombophilia Stroke (< 1 month) Elective arthroplasty Hip, pelvis, or leg fracture Acute spinal cord injury (< 1 month) Prophylaxis Regimen Total Risk Factor Score Risk Level Prophylaxis Regimen 0-1 Low Early ambulation 2 Moderate Order ONE of the following: *Sequential Compression Device (SCD) *Heparin 5000 units SQ BID 3-4 Higher Order ONE of the following medications: *Heparin 5000 units SQ TID *Enoxaparin/Lovenox 40 mg SQ daily (WT < 150 kg, CrCl > 30 mL/min) *Enoxaparin/Lovenox 30 mg SQ daily (WT < 150 kg, CrCl > 10-29 mL/min) *Enoxaparin/Lovenox 30 mg SQ BID (WT < 150 kg, CrCl > 30 mL/min) AND/OR *Sequential Compression Device (SCD) 5 or more Highest Order ONE of the following medications: *Heparin 5000 units SQ TID (Preferred with Epidurals) *Enoxaparin/Lovenox 40 mg SQ daily (WT < 150 kg, CrCl > 30 mL/min) *Enoxaparin/Lovenox 30 mg SQ daily (WT < 150 kg, CrCl > 10-29 mL/min) *Enoxaparin/Lovenox 30 mg SQ BID (WT < 150 kg, CrCl > 30 mL/min) AND *Sequential Compression Device (SCD) Data Data Vital Signs Reviewed: Yes Orders Orders Admit To Inpatient (05/26/17 ) Code Status (05/26/17 06:52) Vital Signs (Adult) .Per protocol (05/26/17 06:52) Activity Oob Ad Mary (05/26/17 06:52) Heart (05/26/17 06:52) Amnioinfusion (05/26/17 06:52) Urinary Catheter Management .ONCE (05/26/17 06:52) Diet Liquid (05/26/17 Breakfast) Lactated Ringer's 1000 Ml Inj (Lr 1000 M (05/26/17 06:52) Lactated Ringer's 1000 Ml Inj (Lr 1000 M (05/26/17 06:52) Sodium Chlorid 0.9% 500 Ml Inj (Ns 500 M (05/26/17 07:00) Sodium Chlor 0.9% 1000 Ml Inj (Ns 1000 M (05/26/17 07:12) Lidocaine 1% Inj (50 Ml) (Xylocaine 1% I (05/26/17 07:00) Citric Acid-Sodium Citrate Liq (Bicitra (05/26/17 07:00) Ondansetron Inj (Zofran Inj) (05/26/17 07:00) Fentanyl Inj (Fentanyl Inj) (05/26/17 07:00) Fentanyl Inj (Fentanyl Inj) (05/26/17 07:00) Penicillin G Potassium Inj (Pfizerpen-G (05/26/17 07:00) Penicillin G Potassium Inj (Pfizerpen-G (05/26/17 11:00) Complete Blood Count With Diff (05/26/17 06:52) Hold Clot (05/26/17 06:52) Abo/Rh Blood Type (05/26/17 06:52) Urinalysis - C+S If Indicated (05/26/17 06:52) Drug Screen, Random Urine (05/26/17 06:52) Resp Oxygen Non Rebreathe Mask (05/26/17 ) ^ Epidural / Intrathecal Infus (05/26/17 06:52) Oxytocin 30 Units-500ml Premix (Pitocin (05/26/17 07:00) Lidocaine 1% Inj (50 Ml) (Xylocaine 1% I (05/26/17 07:00) Light Mineral Oil (Muri-Lube Oil) (05/26/17 07:00) Inpatient Certification (05/26/17 ) Specimen To Be Collected PRN (05/26/17 06:52) Specimen To Be Collected PRN (05/26/17 06:52) Group B Strep: Positive Assessment/Plan Assessment and Plan 22 year old at 40-4/7 weeks gestation. 1. IUP- Category I tracing, reassuring. 2. IOL at term- Cervical ripening with Cytotec. 3. GBS positive- Penicillin per protocol. 4. Poor care- labs reviewed from 04/25. Obtain UDS. 5. Anticipate vaginal delivery. yoon Sales,Asai Subramanian MD, R3 May 26, 2017 07:00
[2017-05-26] MEDS ORDERED: SODIUM CHLOR 0.9% 1000 ML INJ 1,000 ML IV PRN (07:12)
[2017-05-26] MEDS ORDERED: SODIUM CHLOR 0.9% 1000 ML INJ 1,000 ML OTHER PRN (07:44)
[2017-05-26] MEDS ORDERED: MISOPROSTOL 25 MCG SUPP VAGINAL ONE (07:45)
[2017-05-26] MEDS ORDERED: MISOPROSTOL 100 MCG TAB VAGINAL ONE (08:45)
[2017-05-26] MEDS: LACTATED RINGER'S 1000 ML INJ 1,000 ML IV SCH ×2 (08:46→22:52)
--- NOTE | 2017-05-26 08:56 | PD.LABORPN ---
Subjective Subjective Patient resting in bed comfortably. Objective Vital Signs Vital Signs Date Time Temp Pulse Resp B/P (MAP) Pulse Ox O2 Delivery O2 Flow Rate FiO2 05/26/17 07:53 68 109/71 (84) Objective Pelvic Exam: Copious white, greenish curdly discharge noted on exam. Cervix: anterior Dilatation: 1 Effacement: 0 Station: -2 Presentation: vertex Membranes: intact Uterine Contractions: none FHT's: Category: I Baseline: 130 Reactive: + Variability: moderate Decels: none Assessment/Plan Assessment and Plan 22 year old at 40-4/7 weeks gestation. 1. IUP- Category I tracing, reassuring. 2. IOL at term- Cervical ripening with Cytotec. 3. Vaginal discharge- obtain wet prep and GC and chlamydia 4. GBS positive- Penicillin per protocol. 5. Poor care- labs reviewed from 04/25. Obtain UDS. 6. Anticipate vaginal delivery. Asia Jerry Dr., MD, R3 May 26, 2017 08:56
[2017-05-26 09:00] LABS: AUTOMATED NEUTROPHIL # 4.9 TH/MM3 (1.8-7.7); BASOPHIL % 0.5 % (0.0-2.0); EOSINOPHIL # 0.1 TH/MM3 (0-0.4); EOSINOPHIL % 1.3 % (0.0-4.0); HEMATOCRIT 28.9 % (35.0-46.0); HEMOGLOBIN 9.4 GM/DL (11.6-15.3); LYMPH % 24.1 % (9.0-44.0); LYMPHOCYTE # 1.8 TH/MM3 (1.0-4.8); MEAN CELL VOLUME 76.7 FL (80.0-100.0); MEAN CORPUSCULAR HEMOGLOBIN 24.8 PG (27.0-34.0); MEAN CORPUSCULAR HGB CONC 32.4 % (32.0-36.0); MEAN PLATELET VOLUME 8.2 FL (7.0-11.0); MONO % 9.1 % (0.0-8.0); MONOCYTE # 0.7 TH/MM3 (0-0.9); PLATELET COUNT 293 TH/MM3 (150-450); RED BLOOD COUNT 3.77 MIL/MM3 (4.00-5.30); RED CELL DISTRIBUTION WIDTH 19.7 % (11.6-17.2); WHITE BLOOD COUNT 7.5 TH/MM3 (4.0-11.0)
[2017-05-26 09:04] LABS: BACTERIA, URINE MOD /hpf; BILIRUBIN, URINE NEG (NEG); BLOOD, URINE SMALL (NEG); GLUCOSE,URINE NEG (NEG); KETONE, URINE NEG (NEG); MUCUS URINE FEW /lpf (OCC); NITRITE,URINE NEG (NEG); PH, URINE 6.5 (5.0-8.5); SQUAMOUS EPITHELIAL CELL URINE 9 /hpf (0-5); URINE COLOR YELLOW (YELLW/STRAW); URINE LEUKOCYTE ESTERASE LARGE (NEG); WHITE BLOOD CELL CLUMPS FEW
[2017-05-26] MEDS ORDERED: FLUCONAZOLE 100 MG TAB PO ONE (09:30)
[2017-05-26] MEDS: metroNIDAZOLE 500 MG TAB PO SCH ×2 (10:35→22:00)
[2017-05-26] MEDS: PENICILLIN G POTASSIUM INJ 2,500,000 UNITS in SODIUM CHLORIDE 0.9% INJ 100 ML IV SCH ×2 (11:00→15:00)
[2017-05-26] MEDS ORDERED: MISOPROSTOL 25 MCG SUPP VAGINAL PRN (11:45)
[2017-05-26] MEDS ORDERED: cefTRIAXone 250 MG VIAL IM ONE (13:30)
[2017-05-26] MEDS ORDERED: AZITHROMYCIN PWD FOR SUSP 1 GM PACKET PO ONE (13:30)
--- NOTE | 2017-05-26 13:37 | PD.LABORPN ---
Subjective Subjective Patient is feeling painful contractions. Objective Vital Signs Vital Signs Date Time Temp Pulse Resp B/P (MAP) Pulse Ox O2 Delivery O2 Flow Rate FiO2 05/26/17 12:00 98.2 18 05/26/17 11:50 70 113/78 (90) 05/26/17 08:00 98.1 18 05/26/17 07:53 68 109/71 (84) Objective Pelvic Exam: Cervix: midposition Dilatation: 1 Effacement: 50 Station: -2 Presentation: vertex Membranes: intact Uterine Contractions: q1-2min FHT's: Category: II Baseline: 145 Reactive: + Variability: moderate Decels: prolonged deceleration with intermittent variable decelerations Assessment/Plan Assessment and Plan 22 year old at 40-4/7 weeks gestation. 1. IUP- Category II tracing. Position change and IV fluids administered with resolution of bradycardia. Continue to monitor. 2. IOL at term- Will hold any further ripening/augmentation at this time given current heart tracing. Expectant management and close monitoring. 3. Vaginal discharge- wet prep positive for BV and yeast vaginitis- will treat with Flagyl 500mg PO BID x 7 days and Diflucan 150mg PO Once. Positive for chlamydia- will treat with Rocephin 250mg IM once and Azithromycin 1000mg PO once. 4. GBS positive- Penicillin per protocol. 5. Poor care- labs reviewed from 04/25. Obtain UDS. 6. Anticipate vaginal delivery. Asia Chandler Dr., MD, R3 May 26, 2017 13:37
[2017-05-26] MEDS ORDERED: MISOPROSTOL 100 MCG TAB VAGINAL SCH (14:00)
--- NOTE | 2017-05-26 16:15 | PD.LABORPN ---
Subjective Subjective Patient feeling painful contractions. Objective Vital Signs Vital Signs Date Time Temp Pulse Resp B/P (MAP) Pulse Ox O2 Delivery O2 Flow Rate FiO2 05/26/17 14:30 73 18 112/78 (89) 05/26/17 14:30 98.2 05/26/17 13:30 66 05/26/17 12:00 98.2 18 05/26/17 11:50 70 113/78 (90) Objective Pelvic Exam: Cervix: posterior Dilatation: 1 Effacement: 50 Station: -2 Presentation: vertex Membranes: SROM, light mec Uterine Contractions: q1-3min FHT's: Category: II Baseline: 130 Reactive: + Variability: moderate Decels: prolonged deceleration Assessment/Plan Assessment and Plan 22 year old at 40-4/7 weeks gestation. 1. IUP- Category II tracing. Position change with resolution of bradycardia. Continue to monitor. 2. IOL at term- SROM. IUPC placed. Expectant management and close monitoring. 3. Vaginal discharge- wet prep positive for BV and yeast vaginitis- will treat with Flagyl 500mg PO BID x 7 days and Diflucan 150mg PO Once. Positive for chlamydia- s/p Rocephin 250mg IM once and Azithromycin 1000mg PO once. 4. GBS positive- Penicillin per protocol. 5. Poor care- labs reviewed from 04/25. UDS positive for cannabinoids. 6. Anticipate vaginal delivery. Asia Chandler Dr., MD, R3 May 26, 2017 16:15
[2017-05-26] MEDS ORDERED: TERBUTALINE INJ 1 MG/ML AMP SQ ONE (16:45)
[2017-05-26] MEDS ORDERED: OXYTOCIN 30 UNITS-500ML PREMIX 500 ML ONE (19:12)
[2017-05-26] MEDS ORDERED: fentaNYL 2MCG-BUPIV 0.125% INJ 100 ML ONE (21:17)
[2017-05-26] MEDS ORDERED: ePHEDrine/NS 25 MG/5 ML SYRINGE ONE (22:02)
[2017-05-27] VITALS (93 sets, daily range): BP systolic 93–143; BP diastolic 62–114; PULSE 63–110; RESP 16–22; TEMP 97.4–98.9; O2SAT 98–100
[2017-05-27] MEDS ORDERED: fentaNYL 2MCG-BUPIV 0.125% INJ 100 ML ONE ×2 (05:31→12:55)
[2017-05-27] MEDS ORDERED: OXYTOCIN 30 UNITS-500ML PREMIX 500 ML IV PRN ×2 (07:30→13:45)
[2017-05-27] MEDS ORDERED: LIDOCAINE 2%/EPINEPHrine PF 1:200,000 20ML SDV INFIL ONE (12:00)
[2017-05-27] MEDS ORDERED: ONDANSETRON HCL 4 MG/2 ML VIAL IV ONE (12:00)
[2017-05-27] MEDS ORDERED: LACTATED RINGER'S 1000 ML INJ 1,000 ML IV ONE (12:00)
[2017-05-27] MEDS ORDERED: OXYTOCIN 10 UNIT/ML AMP IV ONE (12:00)
[2017-05-27] MEDS: metroNIDAZOLE 500 MG TAB PO SCH (12:00)
[2017-05-27] MEDS: PENICILLIN G POTASSIUM INJ 2,500,000 UNITS in SODIUM CHLORIDE 0.9% INJ 100 ML IV SCH ×3 (13:22→19:00)
[2017-05-27] MEDS ORDERED: ceFAZolin 2 GM PREMIX 50 ML IV SCH (17:30)
[2017-05-27] MEDS ORDERED: MORPHINE SULFATE PF 5 MG/10 ML VIAL ONE (17:52)
[2017-05-27] MEDS ORDERED: ACETAMINOPHEN 1000 MG/100 ML 100 ML IV ONE (17:53)
[2017-05-27] MEDS: CITRIC ACID-SODIUM CITRATE LIQ 30 ML UDC PO SCH ×2 (17:57→20:16)
[2017-05-27] MEDS: LACTATED RINGER'S 1000 ML INJ 1,000 ML IV SCH ×2 (17:58→23:25)
--- NOTE | 2017-05-27 19:30 | PD.OB.DELI ---
Procedure Note Section Procedure Pre Op Diagnosis: (1) 40 weeks gestation of (2) Direct occiput posterior presentation of fetus (3) Failure of descent in labor, delivered, current hospitalization (4) Mother positive for group B Streptococcus colonization Post Op Diagnosis: Performed by Krystin Bryan Procedure: Primary Low Transverse Sec Indication for delivery: Other (failure to descend with OP presentation) Informed consent obtained: For anesthesia, For procedure Confirmed correct: Time-out taken Anesthesia: Epidural Medication prior to procedure: As documented in eMAR, Antibiotics, IV Urinary catheter: To dependent drainage, ml urine output (200 cc) Sterile preparation: Duraprep Position: Supine with wedge to left side Operative Features Skin Incision: Pfannenstiel Uterine Incision: Low transverse w/knife / blunt ext Membranes Ruptured: Previously, Appearance of fluid (clear fluid) Presentation: Occiput posterior Delivery date: May 27, 2017 Delivery time: 19:05 Delivery of infant: Uneventful, Umbilical cord (nuchal cord 1) : Male One Minute : 8 Five Minute : 9 Weight: 3485 g Status of : Viable Placenta delivered: Intact Estimated blood loss: 600 cc Procedure tolerated: Well Maternal Condition: Stable Condition: Stable Krystin Bryan MD May 27, 2017 19:30
[2017-05-27] MEDS ORDERED: SODIUM CHLORIDE 0.9% FLUSH 10 ML FLUSH IV FLUSH PRN (19:45)
[2017-05-27] MEDS ORDERED: KETOROLAC TROMETHAMINE 60 MG/2 ML (IM) VIAL IM PRN (19:45)
[2017-05-27] MEDS ORDERED: ONDANSETRON HCL 4 MG/2 ML VIAL IV PUSH PRN (19:45)
[2017-05-27] MEDS ORDERED: OXYTOCIN 30 UNITS-500ML PREMIX 500 ML IV ONE (19:45)
[2017-05-27] MEDS ORDERED: SIMETHICONE 80 MG CHEWABLE TAB PO PRN (19:45)
[2017-05-27] MEDS ORDERED: IBUPROFEN 600 MG TAB PO PRN (19:45)
[2017-05-27] MEDS ORDERED: NO SYSTEM NARCOTICS PRN (21:15)
[2017-05-27] MEDS ORDERED: ePHEDrine/NS 25 MG/5 ML SYRINGE IV PUSH PRN (21:15)
[2017-05-27] MEDS ORDERED: fentaNYL 2MCG-BUPIV 0.125% 100 ML EPIDURAL SCH (21:15)
[2017-05-27] MEDS ORDERED: DO NOT ADMINISTER ANTICOAGULANTS PRN (21:15)
--- NOTE | 2017-05-27 21:39 | MP ---
cc: STEVEN GAMEZ MD DATE OF SURGERY 05/27/17 PREOPERATIVE DIAGNOSIS 1. 40 weeks gestation. 2. Direct occiput posterior presentation. 3. Failure of descent in labor. 4. Positive group B strep. POSTOPERATIVE DIAGNOSIS 1. 40 weeks gestation. 2. Direct occiput posterior presentation. 3. Failure of descent in labor. 4. Positive group B strep. PROCEDURE Primary low transverse section without extension ESTIMATED BLOOD LOSS 600 mL ANESTHESIA Epidural DRAINS Leblanc to gravity. COMPLICATIONS None PATHOLOGY None FINDINGS 1. Normal uterus, tubes and ovaries. 2. Clear amniotic fluid. 3. Infant male vertex presentation in occiput posterior. Apgars were 8 and 9. Weight was 3485 grams, 7 pounds 11 ounces. DESCRIPTION OF PROCEDURE The patient taken back to the operating room, draped in usual A sterile fashion, placed in the dorsal supine position with a wedge to her left side. After adequate anesthetic a Pfannenstiel incision was made in the skin, taken down to the fascia and the fascia was nicked in the midline and extended bilaterally, taken down to the rectus muscles. Muscles were divided in the midline. Anterior peritoneum was entered, extended superiorly inferiorly taking care to avoid traumatization of the bowel and the bladder. Transverse hysterotomy incision was made bluntly and extended bilaterally. The infant was delivered to the operative field. Nuchal cord x1 was reduced, the rest of the body was delivered and handed off to the resuscitation team. A 45-second cord clamping delay was administered. Placenta was delivered intact spontaneously and the endometrial cavity was curetted with a moist laparotomy sponge. Hysterotomy incision was repaired using a running locking #1 chromic suture with good hemostasis at closure. Gutters were rendered free of all blood and clot material. The peritoneum was closed with a running suture of 3-0 chromic. A #1 PDS was placed into the fascia and a subcuticular suture using 3-0 Monocryl was placed in the skin. The patient tolerated the procedure well. She has taken back to recovery room in good condition. Steven Gamez MD /SA /7:28 PM /9:19 PM
[2017-05-27] MEDS: DOCUSATE SODIUM 50 MG/SENNA 8.6 MG TAB PO PRN ×2 (23:25→23:26)
[2017-05-27] MEDS: IBUPROFEN 800 MG TAB PO PRN ×2 (23:25→23:27)
[2017-05-28 00:30] VITALS: BP 120/70; PULSE 72; RESP 18; TEMP 98.3
[2017-05-28] MEDS ORDERED: LACTATED RINGER'S 1000 ML INJ 1,000 ML IV SCH (00:32)
[2017-05-28] MEDS ORDERED: EPIDURAL-DIPHENHYDRAMINE HCL 50 MG CAP PO PRN (01:00)
[2017-05-28] MEDS ORDERED: EPIDURAL-DIPHENHYDRAMINE HCL 50 MG/ML VIAL IV PUSH PRN (01:00)
[2017-05-28] MEDS ORDERED: EPIDURAL-NALOXONE HCL 0.4 MG/ML AMP IV PUSH PRN (01:00)
[2017-05-28] MEDS ORDERED: EPIDURAL-NO SYSTEMIC NARCOTICS PRN (01:00)
[2017-05-28] MEDS ORDERED: EPIDURAL-DO NOT ADMINISTER ANTICOAGULANTS PRN (01:00)
[2017-05-28 03:30] VITALS: BP 122/70; PULSE 70; RESP 18; TEMP 98.3
[2017-05-28 05:01] LABS: AUTOMATED NEUTROPHIL # 13.5 TH/MM3 (1.8-7.7); BASOPHIL % 0.2 % (0.0-2.0); EOSINOPHIL % 0.1 % (0.0-4.0); HEMATOCRIT 27.6 % (35.0-46.0); LYMPHOCYTE # 1.3 TH/MM3 (1.0-4.8); MEAN CELL VOLUME 75.7 FL (80.0-100.0); MEAN CORPUSCULAR HEMOGLOBIN 24.8 PG (27.0-34.0); MEAN CORPUSCULAR HGB CONC 32.8 % (32.0-36.0); MEAN PLATELET VOLUME 8.3 FL (7.0-11.0); MONO % 7.7 % (0.0-8.0); MONOCYTE # 1.2 TH/MM3 (0-0.9); PLATELET COUNT 239 TH/MM3 (150-450); RED BLOOD COUNT 3.65 MIL/MM3 (4.00-5.30); RED CELL DISTRIBUTION WIDTH 19.1 % (11.6-17.2); WHITE BLOOD COUNT 16.1 TH/MM3 (4.0-11.0)
[2017-05-28] MEDS ORDERED: OXYTOCIN 30 UNITS-500ML PREMIX 500 ML IV PRN (05:45)
[2017-05-28 08:30] VITALS: BP 110/84; PULSE 68; RESP 16; TEMP 98
--- NOTE | 2017-05-28 08:36 | HHI.OB ---
Subjective Post Operative Day: 1 Remarks Ms. Hobson is a 22 yo who is POD 1 from CS (failure to progress) 05/27 at 1905. Patient has been afebrile with stable vital signs overnight. Patient reports that she is doing well at this time; she reports that her abdominal pain is controlled. Patient has had light vaginal bleeding. Patient has been ambulating well. No dysuria. Patient passing gas; no bowel movement. Patient is bottle feeding. No chest pain, shortness of breath, or leg swelling. Objective Vitals/I&O Vital Signs Date Time Temp Pulse Resp B/P (MAP) Pulse Ox O2 Delivery O2 Flow Rate FiO2 05/28/17 03:30 98.3 18 05/28/17 03:30 70 122/70 (87) 05/28/17 01:10 16 05/28/17 00:30 98.3 72 18 120/70 (87) 05/27/17 21:30 98.9 70 18 122/81 (95) 05/27/17 20:25 98.6 05/27/17 20:22 16 100 05/27/17 20:22 82 21 05/27/17 20:21 127/91 (103) 05/27/17 20:08 83 21 100 05/27/17 20:08 129/67 (87) 05/27/17 19:55 91 129/77 (94) 05/27/17 19:55 22 100 05/27/17 19:40 98.0 98 05/27/17 19:40 92 20 120/88 (99) 05/27/17 18:20 84 134/96 (109) 05/27/17 18:15 81 05/27/17 18:15 76 136/95 (109) 05/27/17 18:13 72 143/93 (110) 05/27/17 17:30 73 112/62 (79) 05/27/17 17:13 98.5 20 05/27/17 17:01 73 93/64 (74) 05/27/17 16:31 76 125/84 (98) 05/27/17 16:01 69 139/108 (118) 05/27/17 15:45 97.5 18 05/27/17 15:31 74 124/76 (92) 05/27/17 15:00 73 123/79 (94) 05/27/17 14:31 70 109/64 (79) 05/27/17 14:01 91 127/82 (97) 05/27/17 13:52 18 05/27/17 13:45 98.3 18 05/27/17 13:30 69 119/102 (108) 05/27/17 13:00 74 135/94 (108) 05/27/17 12:45 98.2 18 05/27/17 12:30 110 135/114 (121) 05/27/17 12:01 63 127/72 (90) 05/27/17 11:45 98.2 18 05/27/17 11:39 69 133/96 (108) 05/27/17 11:30 70 135/98 (110) 05/27/17 11:15 66 122/78 (93) 05/27/17 11:00 70 133/83 (100) 05/27/17 10:25 67 05/27/17 10:20 67 05/27/17 10:16 65 130/94 (106) 05/27/17 10:01 75 130/76 (94) 05/27/17 10:00 76 05/27/17 09:50 71 05/27/17 09:45 70 05/27/17 09:45 16 05/27/17 09:45 71 124/87 (99) 05/27/17 09:40 73 05/27/17 09:35 74 05/27/17 09:31 80 111/74 (86) 05/27/17 09:10 67 05/27/17 09:05 78 05/27/17 09:03 78 136/95 (109) 05/27/17 09:00 70 05/27/17 08:58 97.4 05/27/17 08:58 18 05/27/17 08:55 76 05/27/17 08:46 66 130/91 (104) 05/27/17 08:45 69 05/27/17 08:40 72 05/27/17 08:35 67 Result Diagram: 05/28/17 0436 Objective Remarks GENERAL: Well-nourished, well-developed patient. CARDIOVASCULAR: Regular rate and rhythm without murmurs. Normal perfusion RESPIRATORY: CTAB; normal rate ABDOMEN/GI: Abdomen soft, non-tender, bowel sounds present. Incision: Clean, dry and intact. Fundus: Firm, non-tender at umbilicus. GENITOURINARY: Light bleeding. EXTREMITIES: No cyanosis or edema, non-tender, without signs of DVT. Medications and IVs Current Medications Medications (Trade) Dose Ordered Sig/Maggi Route Start Time Stop Time Status Last Admin Lactated Ringer's 1,000 ml @ 125 mls/hr Q8H IV 05/26/17 06:52 05/27/17 23:25 Lactated Ringer's 1,000 ml @ 3,000 mls/hr Q20M PRN IV 05/26/17 06:52 Sodium Chloride 1,000 ml @ 100 mls/hr Q10H PRN IV 05/26/17 07:12 (Xylocaine 1% Inj (50 ml)) 0.1 ml UNSCH X1 PRN I-DERMAL 05/26/17 07:00 05/29/17 06:59 (Bicitra Liq) 30 ml JUDICIAL REPORTER PO 05/26/17 07:00 05/30/17 06:59 05/27/17 20:16 (fentaNYL INJ) 50 mcg Q1H PRN IV PUSH 05/26/17 07:00 05/26/17 14:27 (fentaNYL INJ) 100 mcg Q1H PRN IV PUSH 05/26/17 07:00 05/26/17 17:41 (Muri-Lube Oil) 10 ml UNSCH PRN TOPICAL 05/26/17 07:00 Cefazolin Sodium/ Dextrose 50 ml @ 100 mls/hr JUDICIAL REPORTER IV 05/27/17 17:30 05/31/17 17:29 05/27/17 20:16 Lactated Ringer's 1,000 ml @ 100 mls/hr Q10H IV 05/28/17 00:32 05/28/17 20:31 Oxytocin 500 ml @ 100 mls/hr UNSCH X1 PRN IV 05/28/17 05:45 05/29/17 05:44 (NS Flush) 2 ml BID IV FLUSH 05/27/17 21:00 (NS Flush) 2 ml UNSCH PRN IV FLUSH 05/27/17 19:45 (Mylicon Chew) 80 mg QID PRN PO 05/27/17 19:45 (Percocet 5-325 Mg) 1 tab Q4H PRN PO 05/27/17 19:45 (Percocet 5-325 Mg) 2 tab Q4H PRN PO 05/27/17 19:45 (Teetee-Colace) 2 tab Q12H PRN PO 05/27/17 19:45 05/27/17 23:26 (M-M-R Ii Inj) 0.5 ml ONCE ONCE SQ 05/28/17 16:00 05/28/17 16:01 (Boostrix Inj) 0.5 ml ONCE ONCE IM 05/28/17 16:00 05/28/17 16:01 05/28/17 01:01 (Zofran Inj) 4 mg Q6H PRN IV PUSH 05/27/17 19:45 Miscellaneous Information No systemic narcotics to be given except... UNSCH PRN .XX 05/27/17 21:15 05/28/17 21:14 Miscellaneous Information DO NOT ADMINISTER ANY ANTICOAGUL... UNSCH PRN .XX 05/27/17 21:15 05/28/17 21:14 Fentanyl/ Bupivacaine HCl 100 ml @ 0 mls/hr TITRATE EPIDURAL 05/27/17 21:15 (ePHEDrine/NS 25 MG/5 ML SYR) 10 mg UNSCH PRN IV PUSH 05/27/17 21:15 05/28/17 21:14 (Motrin) 800 mg Q8H PRN PO 05/27/17 22:30 05/27/17 23:27 Miscellaneous Information NO SYSTEMIC NARCOTICS TO BE GIVEN FO... UNSCH PRN .XX 05/28/17 01:00 05/29/17 00:59 (Narcan Inj) 0.4 mg UNSCH PRN IV PUSH 05/28/17 01:00 05/29/17 00:59 (Benadryl Inj) 25 mg Q6H PRN IV PUSH 05/28/17 01:00 05/29/17 00:59 (Benadryl) 50 mg Q6H PRN PO 05/28/17 01:00 05/29/17 00:59 Miscellaneous Information ALL NURSING DEPARTMENTS UNSCH PRN .XX 05/28/17 01:00 05/29/17 00:59 Assessment/Plan Problem List: (1) Chlamydia ICD Codes: A74.9 - Chlamydial infection, unspecified (2) care following delivery ICD Codes: Z39.2 - Encounter for routine follow-up Assessment and Plan Ms. Hobson is a 22 yo who is POD 1 from CS (failure to progress) 05/27 at 1905. -Continue post- care -Continue to monitor VS, vaginal bleeding -Encourage ambulation -Percocet/Motrin for pain control -Teetee-colace for stool softening -Bacterial vaginosis -Continue Flagyl 500mg BID -Vaginal sebastián -s/p Diflucan x1 Chlamydia -s/p Azithromycin 1gm Ronak Otero MD, R3 May 28, 2017 08:36
[2017-05-28] MEDS: metroNIDAZOLE 500 MG TAB PO SCH ×2 (10:18→21:08)
[2017-05-28] MEDS: IBUPROFEN 800 MG TAB PO PRN ×2 (10:24→21:09)
[2017-05-28] MEDS: oxyCODONE/ACETAMINOPHEN 5 MG/325 MG TAB PO PRN ×3 (10:24→21:09)
[2017-05-28 12:30] VITALS: BP 108/77; PULSE 87; RESP 18; TEMP 98.7
[2017-05-28] MEDS ORDERED: DIPHTH/TETANUS/ACEL PERTUSSIS (BOOSTER) 0.5 ML VIAL/PFS IM ONE (16:00)
[2017-05-28] MEDS ORDERED: MEASLES, MUMPS, RUBELLA VACCINE 0.5 ML VIAL SQ ONE (16:00)
[2017-05-28 16:30] VITALS: BP 117/75; PULSE 82; RESP 18; TEMP 98.4
[2017-05-28 20:00] VITALS: BP 112/69; PULSE 70; RESP 20; TEMP 97.7; O2SAT 97
[2017-05-28] MEDS: LACTATED RINGER'S 1000 ML INJ 1,000 ML IV SCH (21:12)
[2017-05-28] MEDS: SODIUM CHLORIDE 0.9% FLUSH 10 ML FLUSH IV FLUSH SCH ×2 (21:12→21:23)
[2017-05-29] MEDS: oxyCODONE/ACETAMINOPHEN 5 MG/325 MG TAB PO PRN ×3 (05:13→19:41)
[2017-05-29] MEDS: IBUPROFEN 800 MG TAB PO PRN ×2 (05:13→13:52)
--- NOTE | 2017-05-29 07:40 | HHI.OB ---
Subjective Post Operative Day: 2 Remarks Ms. Hobson is a 22 yo who is POD 2 from CS (failure to progress) 05/27 at 1905. Patient has been afebrile with stable vital signs overnight. Patient reports that her abdominal pain is worse; she attributes this to medications associated with surgery wearing off. Patient has had light vaginal bleeding. Patient has been ambulating well; she uses assistance when in pain. Patient reports some dysuria. Patient passing gas; no bowel movements. Patient is bottle feeding. No chest pain, shortness of breath, or leg swelling. Patient reports that she was visited by [facility]. Objective Vitals/I&O Vital Signs Date Time Temp Pulse Resp B/P (MAP) Pulse Ox O2 Delivery O2 Flow Rate FiO2 05/28/17 20:00 97.7 70 20 112/69 (83) 97 05/28/17 16:30 98.4 82 18 117/75 (89) 05/28/17 12:30 98.7 87 18 108/77 (87) 05/28/17 08:30 98.0 68 16 110/84 (93) Result Diagram: 05/28/17 0436 Objective Remarks GENERAL: Well-nourished, well-developed patient. CARDIOVASCULAR: Regular rate and rhythm without murmurs. Normal perfusion RESPIRATORY: CTAB; normal rate ABDOMEN/GI: Abdomen soft, non-tender, bowel sounds present. Incision: Clean, dry and intact. Fundus: Firm, non-tender at umbilicus. GENITOURINARY: Light bleeding. EXTREMITIES: No cyanosis or edema, non-tender, without signs of DVT. Medications and IVs Current Medications Medications (Trade) Dose Ordered Sig/Maggi Route Start Time Stop Time Status Last Admin Lactated Ringer's 1,000 ml @ 125 mls/hr Q8H IV 05/26/17 06:52 05/27/17 23:25 Lactated Ringer's 1,000 ml @ 3,000 mls/hr Q20M PRN IV 05/26/17 06:52 Sodium Chloride 1,000 ml @ 100 mls/hr Q10H PRN IV 05/26/17 07:12 (Bicitra Liq) 30 ml SHOWER DOORS AND PANELS FABRICATOR PO 05/26/17 07:00 05/30/17 06:59 05/27/17 20:16 (fentaNYL INJ) 50 mcg Q1H PRN IV PUSH 05/26/17 07:00 05/26/17 14:27 (fentaNYL INJ) 100 mcg Q1H PRN IV PUSH 05/26/17 07:00 05/26/17 17:41 (Muri-Lube Oil) 10 ml UNSCH PRN TOPICAL 05/26/17 07:00 Cefazolin Sodium/ Dextrose 50 ml @ 100 mls/hr SHOWER DOORS AND PANELS FABRICATOR IV 05/27/17 17:30 05/31/17 17:29 05/27/17 20:16 (NS Flush) 2 ml BID IV FLUSH 05/27/17 21:00 05/28/17 21:23 (NS Flush) 2 ml UNSCH PRN IV FLUSH 05/27/17 19:45 (Mylicon Chew) 80 mg QID PRN PO 05/27/17 19:45 (Percocet 5-325 Mg) 1 tab Q4H PRN PO 05/27/17 19:45 05/28/17 21:09 (Percocet 5-325 Mg) 2 tab Q4H PRN PO 05/27/17 19:45 05/29/17 05:13 (Teetee-Colace) 2 tab Q12H PRN PO 05/27/17 19:45 05/27/17 23:26 (Zofran Inj) 4 mg Q6H PRN IV PUSH 05/27/17 19:45 Fentanyl/ Bupivacaine HCl 100 ml @ 0 mls/hr TITRATE EPIDURAL 05/27/17 21:15 (Motrin) 800 mg Q8H PRN PO 05/27/17 22:30 05/29/17 05:13 (Flagyl) 500 mg BID PO 05/28/17 09:00 05/28/17 21:08 (Ferrous Sulfate) 325 mg BID PO 05/29/17 09:00 Assessment/Plan Problem List: (1) Chlamydia ICD Codes: A74.9 - Chlamydial infection, unspecified (2) care following delivery ICD Codes: Z39.2 - Encounter for routine follow-up Assessment and Plan Ms. Hobson is a 22 yo who is POD 1 from CS (failure to progress) 05/27 at 1905. -Continue post- care -Continue to monitor VS, vaginal bleeding -Encourage ambulation -Percocet/Motrin for pain control -Will add IM Toradol for breakthrough pain -Teetee-colace for stool softening -Bacterial vaginosis -Continue Flagyl 500mg BID -Vaginal sebastián -s/p Diflucan x1 Chlamydia -s/p Azithromycin 1gm Ronak Otero MD, R3 May 29, 2017 07:40
[2017-05-29] MEDS ORDERED: KETOROLAC TROMETHAMINE 60 MG/2 ML (IM) VIAL IM PRN (07:45)
[2017-05-29 08:30] VITALS: BP 120/80; PULSE 66; RESP 18; TEMP 97.9
[2017-05-29] MEDS: FERROUS SULFATE 325 MG (65 MG ELEMENTAL IRON) TAB PO SCH ×2 (08:44→21:30)
[2017-05-29] MEDS: metroNIDAZOLE 500 MG TAB PO SCH ×2 (08:44→21:53)
[2017-05-29] MEDS: DOCUSATE SODIUM 50 MG/SENNA 8.6 MG TAB PO PRN (13:58)
[2017-05-29 19:30] VITALS: BP 118/88; PULSE 67; RESP 18; TEMP 98.5
[2017-05-29 20:30] VITALS: BP 119/85; PULSE 69
[2017-05-30] MEDS: oxyCODONE/ACETAMINOPHEN 5 MG/325 MG TAB PO PRN ×2 (00:04→04:58)
[2017-05-30] MEDS: IBUPROFEN 800 MG TAB PO PRN (00:04)
[2017-05-30 06:30] VITALS: BP 116/84; PULSE 64; RESP 18; TEMP 98.8
[2017-05-30 08:00] VITALS: BP 136/85; PULSE 66; RESP 18; TEMP 97.3; O2SAT 96
--- NOTE | 2017-05-30 08:38 | HHI.OB ---
Subjective Remarks Ms. Hobson is a 22 yo who is POD 3 from CS (failure to progress) 05/27 at 1905. Patient has been afebrile with stable vital signs overnight. Patient reports that her abdominal pain is controlled at this time; she has also been ambulating better. Patient has had light vaginal bleeding. No dysuria. Patient passing gas; no bowel movements. Patient is bottle feeding. No chest pain, shortness of breath, or leg swelling. Patient plans to have follow-up in ~1 week. Objective Vitals/I&O Vital Signs Date Time Temp Pulse Resp B/P (MAP) Pulse Ox O2 Delivery O2 Flow Rate FiO2 05/30/17 06:30 98.8 64 18 116/84 (95) 05/29/17 20:30 69 119/85 (96) 05/29/17 19:30 67 118/88 (98) 05/29/17 19:30 98.5 18 Result Diagram: 05/28/17 0436 Objective Remarks GENERAL: Well-nourished, well-developed patient. CARDIOVASCULAR: Regular rate and rhythm without murmurs. Normal perfusion RESPIRATORY: CTAB; normal rate ABDOMEN/GI: Abdomen soft, non-tender, bowel sounds present. Incision: Clean, dry and intact. Fundus: Firm, non-tender at umbilicus. GENITOURINARY: Light bleeding. EXTREMITIES: No cyanosis or edema, non-tender, without signs of DVT. Medications and IVs Current Medications Medications (Trade) Dose Ordered Sig/Maggi Route Start Time Stop Time Status Last Admin Lactated Ringer's 1,000 ml @ 125 mls/hr Q8H IV 05/26/17 06:52 05/27/17 23:25 Lactated Ringer's 1,000 ml @ 3,000 mls/hr Q20M PRN IV 05/26/17 06:52 Sodium Chloride 1,000 ml @ 100 mls/hr Q10H PRN IV 05/26/17 07:12 (fentaNYL INJ) 50 mcg Q1H PRN IV PUSH 05/26/17 07:00 05/26/17 14:27 (fentaNYL INJ) 100 mcg Q1H PRN IV PUSH 05/26/17 07:00 05/26/17 17:41 (Muri-Lube Oil) 10 ml UNSCH PRN TOPICAL 05/26/17 07:00 Cefazolin Sodium/ Dextrose 50 ml @ 100 mls/hr MOVIE EXTRA IV 05/27/17 17:30 05/31/17 17:29 05/27/17 20:16 (NS Flush) 2 ml BID IV FLUSH 05/27/17 21:00 05/28/17 21:23 (NS Flush) 2 ml UNSCH PRN IV FLUSH 05/27/17 19:45 (Mylicon Chew) 80 mg QID PRN PO 05/27/17 19:45 (Percocet 5-325 Mg) 1 tab Q4H PRN PO 05/27/17 19:45 05/28/17 21:09 (Percocet 5-325 Mg) 2 tab Q4H PRN PO 05/27/17 19:45 05/30/17 04:58 (Teetee-Colace) 2 tab Q12H PRN PO 05/27/17 19:45 05/29/17 13:58 (Zofran Inj) 4 mg Q6H PRN IV PUSH 05/27/17 19:45 Fentanyl/ Bupivacaine HCl 100 ml @ 0 mls/hr TITRATE EPIDURAL 05/27/17 21:15 (Motrin) 800 mg Q8H PRN PO 05/27/17 22:30 05/30/17 00:04 (Flagyl) 500 mg BID PO 05/28/17 09:00 05/29/17 21:53 (Ferrous Sulfate) 325 mg BID PO 05/29/17 09:00 05/29/17 21:30 (Toradol Inj) 30 mg Q6H PRN IM 05/29/17 07:45 06/03/17 07:44 05/29/17 08:46 Assessment/Plan Problem List: (1) Chlamydia ICD Codes: A74.9 - Chlamydial infection, unspecified (2) care following delivery ICD Codes: Z39.2 - Encounter for routine follow-up Assessment and Plan Ms. Hobson is a 22 yo who is POD 3 from CS (failure to progress) 05/27 at 1905. -Continue post- care -Continue to monitor VS, vaginal bleeding -Encourage ambulation -Percocet/Motrin for pain control -Teetee-colace for stool softening -Bacterial vaginosis -Continue Flagyl 500mg BID x 7 days -Vaginal sebastián -s/p Diflucan x1 Chlamydia -s/p Azithromycin 1gm Ronak Otero MD, R3 May 30, 2017 08:38
[2017-05-30] MEDS ORDERED: OXYC1TAB63 PO (09:51)
[2017-05-30] MEDS ORDERED: IBUP1TAB7 PO (09:51)
[2017-05-30] MEDS ORDERED: FERR325T20 PO (09:51)
[2017-05-30] MEDS ORDERED: PERI PO (09:51)
--- NOTE | 2017-05-30 09:52 | HHI.DCPOC ---
Discharge Care Plan Diagnosis: (1) care following delivery Report Symptoms to Your Doctor -Temperature above 100.5 degrees -Redness, of incision or excessive or foul smelling drainage -Unusual pain or calf pain -Increased vaginal bleeding -Painful or difficulty urinating -Feelings of extreme sadness or anxiety after 2 weeks Goals to Promote Your Health * To prevent worsening of your condition and complications * To maintain your health at the optimal level Directions to Meet Your Goals Take your medications as prescribed Follow your dietary instruction Follow activity as directed Ensure plenty of rest for recovery Drink fluids for hydration Keep your appointments as scheduled Take your immunizations and boosters as scheduled If your symptoms worsen call your PCP, if no PCP go to Urgent Care Center or Emergency Room Smoking is Dangerous to Your Health. Avoid second hand smoke Call the 24-hour crisis hotline for domestic abuse at Ronak Otero MD, R3 May 30, 2017 09:52
[2017-05-30] MEDS ORDERED: METR-1 PO (11:31)
== END 2017-05-30 12:21 | disposition home or self-care (01) | DRG 765 ==
LOC: H2EB 06:31 → H1EA 05-27 20:49
PROVIDERS: ADMIT Obstetrics & Gynecology; ATTEND Obstetrics & Gynecology
PROC: 3E0P7VZ Introduction of Hormone into Female Reproductive, Via Natural or Artificial Opening (ICD-10-PCS; 2017-05-26)
PROC: 10H07YZ Insertion of Other Device into Products of Conception, Via Natural or Artificial Opening (ICD-10-PCS; 2017-05-26)
PROC: 3E0R3BZ Introduction of Anesthetic Agent into Spinal Canal, Percutaneous Approach (ICD-10-PCS; 2017-05-26)
PROC: 00HU33Z Insertion of Infusion Device into Spinal Canal, Percutaneous Approach (ICD-10-PCS; 2017-05-26)
PROC: 10D00Z1 Extraction of Products of Conception, Low, Open Approach (ICD-10-PCS; principal; 2017-05-27)
DX: O99.824 Streptococcus B carrier state complicating childbirth (principal); O98.82 Other maternal infectious and parasitic diseases complicating childbirth; A74.9 Chlamydial infection, unspecified; B37.3 Candidiasis of vulva and vagina; O99.324 Drug use complicating childbirth; F12.90 Cannabis use, unspecified, uncomplicated; O99.334 Smoking (tobacco) complicating childbirth; F17.210 Nicotine dependence, cigarettes, uncomplicated; O32.4XX0 Maternal care for high head at term, not applicable or unspecified; O76 Abnormality in fetal heart rate and rhythm complicating labor and delivery; Z3A.40 40 weeks gestation of pregnancy; Z37.0 Single live birth
CPT/HCPCS: 59025; 80307; 81001; 85025; 87086; 87210; 87491; 87591; 90715; G0481; J0131; J0690; J0696; J1200; J1885; J2274; J2405; J2540; J2590; J3010; J3105; J7120

== ENCOUNTER 2017-08-14 09:14 | Emergency (ER) | payer MEDICAID ==
[~2017-08-14 09:14] MED LIST changes: -BACT800T5 PO; -CEPH500C PO; +FERR325T20 PO; +IBUP1TAB7 PO; -MACR100C2 PO; +OXYC1TAB63 PO; +PERI PO; -REGL10TA5 PO; -TRAM50TA PO
[2017-08-14 09:21] VITALS: BP 124/76; PULSE 75; RESP 16; TEMP 98.3; O2SAT 100
--- NOTE | 2017-08-14 10:21 | PD ---
HPI Chief Complaint: Back/ Neck Pain or Injury Time Seen by Provider: 10:07 Travel History International Travel<30 days: No Contact w/Intl Traveler<30days: No Traveled to known affect area: No History of Present Illness HPI 22-year-old female presents to the emergency department complaining of low back pain and abnormal vaginal discharge 5 days. Denies injury or strain. Cannot reproduce the pain when she pushes on her lower back. Says the pain in her lower back feels deep inside. Pain radiates around to her flank area. Reports pain in her lower abdomen/pelvic region. Denies dysuria, urinary frequency, hematuria. Denies abdominal pain, nausea, vomiting. Reports abnormal vaginal discharge with foul-smelling odor. Denies vaginal itching or lesions. Denies encopresis, incontinence, saddle anesthesias. Denies IV drug use or cancer. Denies paresthesias, loss of sensation, decreased range of motion, decreased strength to bilateral lower extremities. Denies history of kidney stones. Rates pain 6/10. Worse with movement. Better with laying down. Has not taken any medications or try any treatments to alleviate her symptoms. No known relieving factors. Questionable exposure to an STD. Takes oral contraception. Last menstrual period 2 weeks ago. Primary care provider is Dr. Lin. No known allergies. Denies significant past medical history. No other modifying factors or associated signs and symptoms. PFSH Past Medical History Autoimmune Disease: No Cardiovascular Problems: No Diminished Hearing: No Gastrointestinal Disorders: No Genitourinary: Yes (STD) Musculoskeletal: No Neurologic: No Psychiatric: No Respiratory: No Immunizations Current: Yes Sickle Cell Disease: No : 0 Past Surgical History Oral Surgery: Yes Other Surgery: No Social History Alcohol Use: No Tobacco Use: Yes (1 cigarette per day) Substance Use: No Allergies-Medications (Allergen,Severity, Reaction): Coded Allergies: No Known Allergies (Verified Allergy, Unknown, 04/28/17) Reported Meds & Prescriptions Reported Meds & Active Scripts Active Flagyl (Metronidazole) 500 Mg Tab 500 Mg PO BID Gnp Senna Plus 8.6-50 mg (Sennosides-Docusate Sodium) 8.6 Mg-50 Mg Tab 2 Tab PO Q12H PRN Oxycodone-Acetaminophen 5-325 (Oxycodone HCl/Acetaminophen) 5 Mg-325 Mg Tablet 1 Tab PO Q4H PRN Ibuprofen 800 Mg Tab 800 Mg PO Q8H PRN Ferosul (Ferrous Sulfate) 325 Mg (65 Mg Iron) Tablet 325 Mg PO BID Ibuprofen 600 Mg Tab 600 Mg PO Q6H PRN Review of Systems Except as stated in HPI: all other systems reviewed are Neg Physical Exam Narrative GENERAL: Well-nourished, well-developed black female patient, in no acute distress; afebrile, nontoxic-appearing SKIN: Warm and dry. HEAD: Atraumatic. Normocephalic. EYES: Pupils equal and round. No scleral icterus. No injection or drainage. ENT: Mucosa pink and moist. Airway patent. NECK: Trachea midline. CARDIOVASCULAR: Regular rate. RESPIRATORY: No accessory muscle use. GASTROINTESTINAL: Abdomen soft, non-tender, nondistended. Positive bowel sounds. No hepato-splenomegaly, or palpable masses. No guarding. Tenderness on palpation of the bladder; nondistended. PELVIC: Exam done in the presence of a nurse. Speculum exam reveals edematous and erythematous cervix with light yellow, mucopurulent, foul-smelling discharge. Bimanual exam reveals no palpable masses or adnexa tenderness, no uterine tenderness. No cervical motion tenderness. MUSCULOSKELETAL: Bilateral lower extremities supple and non-tense with 2+ pedal pulses and sensory intact; with full range of motion and 5/5 strength. 2 + DTRs bilaterally. Active dorsiflexion and extension of bilateral feet. Bilateral straight leg raise is negative for low back pain. Ambulatory in room with normal gait. Sitting up in bed at 90. No obvious deformities. No clubbing. No cyanosis. No edema. BACK: No CVA tenderness. No midline point tenderness on palpation of the lumbar spine. No reproducible tenderness to the lower back on palpation at all. No obvious deformities. NEUROLOGICAL: Awake and alert. Oriented 3. No obvious cranial nerve deficits. Motor grossly within normal limits. Normal speech. Moves all extremities. 5/5 strength to all extremities. Sensory intact. PSYCHIATRIC: Appropriate mood and affect; insight and judgment normal. Data Data Last Documented VS Vital Signs Date Time Temp Pulse Resp B/P (MAP) Pulse Ox O2 Delivery O2 Flow Rate FiO2 08/14/17 11:52 20 08/14/17 09:21 98.3 75 124/76 (92) 100 Orders Orders Urinalysis - C+S If Indicated (08/14/17 09:23) Gc And Chlamydia Pcr (08/14/17 10:15) Wet Prep Profile (08/14/17 10:15) Ed Urine Pregnancytest Poc (08/14/17 10:15) Ketorolac Inj (Toradol Inj) (08/14/17 10:45) Ceftriaxone Inj (Rocephin Inj) (08/14/17 11:30) Azithromycin (Zithromax) (08/14/17 11:30) Ondansetron Odt (Zofran Odt) (08/14/17 11:30) Lidocaine Pf 1% Inj (Xylocaine-Mpf 1% In (08/14/17 11:45) Labs Laboratory Tests Test 08/14/17 10:00 08/14/17 11:20 Urine Color LIGHT-YELLOW Urine Turbidity CLEAR Urine pH 6.0 Urine Specific [place] 1.021 Urine Protein NEG mg/dL Urine Glucose (UA) NEG mg/dL Urine Ketones NEG mg/dL Urine Occult Blood NEG Urine Nitrite NEG Urine Bilirubin NEG Urine Urobilinogen LESS THAN 2.0 MG/DL Urine Leukocyte Esterase NEG Urine RBC LESS THAN 1 /hpf Urine Squamous Epithelial Cells 2 /hpf Urine Mucus FEW /lpf Microscopic Urinalysis Comment CULT NOT INDICATED Clue Cells (Wet Prep) PRESENT Vaginal Trichomonas (Wet Prep) NONE SEEN Vaginal Yeast (Wet Prep) NONE SEEN MDM Medical Decision Making Medical Screen Exam Complete: Yes Emergency Medical Condition: Yes Medical Record Reviewed: Yes Differential Diagnosis Chlamydia, gonorrhea, PID, trichomonas, cystitis, UTI, pyonephritis Narrative Course 22-year-old female with nonreproducible low back pain and abnormal vaginal discharge with foul odor. Denies injury. Denies encopresis, incontinence, saddle anesthesias. Denies IV drug use, cancer. Neuro exam is unremarkable. Wet prep, chlamydia, gonorrhea, urinalysis, UPT ordered. 1117: Pelvic exam concludes cervicitis with foul-smelling light yellow vaginal discharge. Patient empirically treated with azithromycin and Rocephin in the ER. 1118: Urinalysis without signs of infection. 1157: Positive for clue cells/bacterial vaginosis. Negative for trichomonas and vaginal yeast. Chlamydia and gonorrhea pending. Flagyl prescribed for home. Instructed patient to follow-up with OFFAL SEPARATOR. Instructed patient to follow up with primary care provider. Patient verbalizes understanding and agreement with treatment plan. Patient is medically cleared and stable for discharge. Discussed reasons to return to the emergency department. Patient agrees with treatment plan. The patients vital signs are stable and the patient is stable for outpatient follow-up and treatment. Patient discharged home, stable and in no acute distress. Diagnosis Primary Impression: Low back pain Qualified Codes: M54.5 - Low back pain Additional Impressions: Cervicitis Bacterial vaginosis Referrals: [facility] Primary Care Physician Patient Instructions: Acute Low Back Pain (ED), Bacterial Vaginosis (ED), Cervicitis (ED), General Instructions Additional Instructions: Antibiotics as prescribed; do not drink alcohol while taking Flagyl Avoid wearing tight fitted pants Wear cotton underwear only Tylenol or ibuprofen as directed and as needed for pain Robaxin as prescribed and as needed for muscle spasms Heating pad and/or ice to affected area to reduce pain Avoid aggravating activities; increase activity as tolerated Follow-up with primary care provider Return to emergency department immediately with worsening of symptoms Med/Other Pt SpecificInfo: Prescription(s) given Scripts Metronidazole (Flagyl) 500 Mg Tab 500 MG PO BID for Infection for 7 Days, #14 TAB 0 Refills Prov: Zeny Gregory 08/14/17 Methocarbamol (Robaxin) 500 Mg Tab 500 MG PO QID Y for MUSCLE SPASM, #30 TAB 0 Refills Prov: Zeny Gregory SALVAGE CUTTER 08/14/17 Ibuprofen (Ibuprofen) 800 Mg Tab 800 MG PO Q6HR Y for PAIN, #30 TAB 0 Refills Prov: Zeny Gregory 08/14/17 Disposition: 01 DISCHARGE HOME Condition: Stable Zeny Gregory Aug 14, 2017 10:21
[2017-08-14 10:31] LABS: BILIRUBIN, URINE NEG (NEG); BLOOD, URINE NEG (NEG); GLUCOSE,URINE NEG (NEG); KETONE, URINE NEG (NEG); MUCUS URINE FEW /lpf (OCC); NITRITE,URINE NEG (NEG); SQUAMOUS EPITHELIAL CELL URINE 2 /hpf (0-5); URINE COLOR LIGHT-YELLOW (YELLW/STRAW); URINE LEUKOCYTE ESTERASE NEG (NEG)
[2017-08-14] MEDS ORDERED: KETOROLAC TROMETHAMINE 60 MG/2 ML (IM) VIAL IM ONE (10:45)
[2017-08-14] MEDS ORDERED: ONDANSETRON ODT 4 MG TAB PO ONE (11:30)
[2017-08-14] MEDS ORDERED: AZITHROMYCIN 250 MG TAB PO ONE (11:30)
[2017-08-14] MEDS ORDERED: LIDOCAINE HCL 1% 50 ML VIAL IM ONE (11:30)
[2017-08-14] MEDS ORDERED: cefTRIAXone 250 MG VIAL IM ONE (11:30)
[2017-08-14] MEDS ORDERED: LIDOCAINE HCL 1% PF 30 ML VIAL INFIL ONE (11:45)
[2017-08-14 11:52] VITALS: RESP 20
[2017-08-14] MEDS ORDERED: ROBA500T PO (12:00)
[2017-08-14] MEDS ORDERED: IBUP1TAB7 PO (12:00)
[2017-08-14] MEDS ORDERED: METR-1 PO (12:01)
== END 2017-08-14 12:14 | disposition home or self-care (01) ==
LOC: NEPK 09:14
DX: M54.5 Low back pain (principal); N72 Inflammatory disease of cervix uteri; N76.0 Acute vaginitis; F17.210 Nicotine dependence, cigarettes, uncomplicated
CPT/HCPCS: 81001; 84703; 87210; 87491; 87591; 96372; 99283; J0696; J1885